=== PATIENT | female | born 1940 | race Caucasian/White ===

== ENCOUNTER 2025-06-03 15:53 | Inpatient (IN) | payer MEDICARE, OTHER, SELFPAY ==
[2025-06-03] VITALS (10 sets, daily range): BP systolic 112–186; BP diastolic 80–100; BMI 22.1; BMI 21.1
[2025-06-03 11:30] LABS: Hematocrit 35.8 % (37.0-47.0); Hemoglobin 11.7 g/dL (12.0-16.0); Mean Corp Hgb Conc. 32.7 g/dL (33.0-37.0); Mean Corpuscular Volume 85.0 fL (81.0-99.0); Nucleated Red Blood Cells % 0 %; Platelet Count 317 10^3/uL (130-400); Red Cell Dist. Width 14.1 % (11.5-14.5)
[2025-06-03 11:45] LABS: ALT (SGPT) 11 U/L (0-35); AST (SGOT) 17 U/L (14-36); Albumin 3.9 g/dl (3.5-5.0); Alkaline Phosphatase 74 U/L (38-126); Blood Urea Nitrogen 17 mg/dl (7-17); Calcium 9.1 mg/dl (8.4-10.2); Carbon Dioxide 26 mmol/L (22-30); Chloride 107 mmol/L (98-107); Glucose 105 mg/dl (70-99); Potassium 4.6 mmol/L (3.5-5.1); Sodium 138 mmol/L (135-145); Total Protein 6.5 g/dl (6.3-8.2); eGFR > 60.00
--- NOTE | 2025-06-03 12:53 | ED.GENMED ---
History of Present Illness
General
Chief Complaint: Abdominal Symptoms
Source: patient, spouse and family
Exam Limitations: none
Time Seen by Provider: 06/03/25 12:07
Nursing documentation reviewed up to this point in time: agreed with
History of Present Illness
History of Present Illness:
84-year-old female presenting to the emergency department today with concerns of ongoing diarrhea it has been multiple times a day over the past 4 weeks. Has noted some weight loss. She was concerned of C. difficile she did have C. difficile
decades ago.
Past History
Past History
ED Past Medical History: None and Other (pessary)
ED Past Surgical History: Gynecological (D&C), Tonsilectomy and Other (Cataracts)
Social History
Tobacco: Non-smoker
Alcohol: Occasional
Personal:
Living: with family
Review of Systems
Review of Systems
Allergies reviewed?: Yes
All Other Systems: ROS reviewed and negative except as documented in HPI and ROS
Phy Exam
Physical Exam
Physical Exam:
GENERAL: Alert , in no apparent distress
EYE: pupils equal and reactive
NECK: Supple, no significant adenopathy.
ENT: o/p clr, mmm.
CARDIAC: Regular rate and rhythm .
LUNGS: Clear breath sounds bilaterally, no acute respiratory distress, no wheezes/rales/rhonchi
ABDOMEN: Vague diffuse abdominal pain
NEUROLOGICAL: Alert and oriented, no focal neuro deficits
SKIN: Warm and dry, skin intact.
MUSCULOSKELETAL: No edema, well perfused.
PSYCH: Normal and appropriate interaction.
Course
Orders/Labs/Results
Orders:
Orders
06/03/25 11:17
CMP [Comprehensive Metabolic Panel] Urgent
Complete Blood Count/With Diff Urgent
06/03/25 12:30
CT Abd/Pel (IV only)-[facility] only Urgent
Comment:
Reason For Exam: diffuse abd pain/diarrhea
STOOL [C difficile Antigen & Toxins] Urgent
CARLOS Source: Feces/Stool
Specimen Description:
Stool Culture Urgent
CARLOS Source: Feces/Stool
Specimen Description:
Ondansetron Injectable [Zofran] 4 mg IV NOW STA
06/03/25 12:31
0.9% Sodium Chloride 1000 ml [Nss] 1,000 ml IV BOLUS
Abnormal Lab Results
06/03/25
11:17
WBC 13.3 H 10^3/uL
(4.8-10.8)
Hgb 11.7 L g/dL
(12.0-16.0)
Hct 35.8 L %
(37.0-47.0)
MCHC 32.7 L g/dL
(33.0-37.0)
Absolute Neuts (auto) 11.0 H 10^3/uL
(1.4-6.5)
Absolute Monos (auto) 0.9 H 10^3/uL
(0.1-0.6)
Neutrophils % 82.1 H %
(42.2-75.2)
Lymphocytes % 9.7 L %
(20.5-51.1)
Glucose 105 H mg/dl
(70-99)
06/03/25 11:17
06/03/25 11:17
Vital Signs
Initial and Last Documented VS:
Initial Vital Signs
Temp Pulse Resp BP Pulse Ox
98.1 F 76 18 160/85 97
06/03/25 11:07 06/03/25 11:07 06/03/25 11:07 06/03/25 11:07 06/03/25 11:07
Last Documented Vital Signs
Temp Pulse Resp BP Pulse Ox
98.1 F 66 14 163/80 98
06/03/25 11:07 06/03/25 13:30 06/03/25 13:30 06/03/25 13:21 06/03/25 13:30
MDM/Problems Addressed
MDM/Problems Addressed:
84-year-old female presenting with concerns of ongoing diarrhea and abdominal pain over the past 4 weeks or so. Feels that she could be dehydrated. On arrival vital signs showing elevated blood pressure otherwise vital signs are normal. Labs
showing slight elevated white count but no emergent findings otherwise labs otherwise unremarkable no signs of significant metabolic dehydration. CT scan was obtained considering she has had some abdominal pain and some reproducible pain on exam.
Patient was found to have potential colitis versus neoplasia of the distal colon also had suspicious findings of the liver possible portal thrombus considering multiple findings plan to admit for further treatment and monitoring.
*Pulse Oximetry
SaO2: 97
Oxygen Mode of Delivery: Room air
Patient hypoxic: no (98)
*Critical Care Note
Total Time (30-74mins, 75-104mins- exclusive of procedures): Not Applicable
ED Attending Note
-
Portions of this chart may have been created with voice recognition software.� Occasional wrong word or��sound alike� substitutions may have occurred due to the inherent limitations of voice recognition software.
Discharge Plan
Departure
Patient Disposition: Admit
Date of Disposition: 06/03/25
Time of Disposition: 15:01
Admit to: Med/Surg
Admit to doctor: Osminy
Presentation/result/management discussed w/ accepting MD/DO: Hospitalist
Patient with high blood pressure during this ER visit?: No
Condition: Good
Covid-19: Not Applicable
Discharge Problem:
Colitis, Diarrhea, Abnormal CT of liver
Referrals:
Jevon Plunkett DO [Family Provider, Family Practice]
Interventions
Interventions:
*Risk Screen - Suicide Last Done: 06/03/25 11:07
*General Assessment Last Done: 06/03/25 13:12
*Neglect/Abuse Screening Last Done: 06/03/25 13:12
*ED- Fall Risk Assessment Last Done: 06/03/25 13:12
*ED COVID-19 Vaccine History Last Done: 06/03/25 13:12
WZ-Xwsepk-Meptjiyved Assessment Last Done: 06/03/25 13:22
Discharge Date and Time
Print Language: WELSH
[2025-06-03] MEDS: NSS 1000 IV (13:25)
--- NOTE | 2025-06-03 15:40 | HPS.HSE ---
Family Physician
-
Family Physician: Jevon Plunkett
Chief Complaint
-
Weight loss, diarrhea, abdominal pain
History of Present Illness
84-year-old female presents accompanied by her and son, complaining of 47 pound weight loss over the past year with associated chronic diarrhea and abdominal discomfort.
States the diarrhea has been present for several months but worsened 2 weeks ago.
Yesterday developed abdominal discomfort.
Only eats 2 meals a day due to chronic anorexia.
Has never had a colonoscopy. Denies history of malignancy. Denies history of VTE.
Denies serious chronic medical conditions.
Denies using prescription medications. Does use eyedrops for macular degeneration.
Medical History
Past Medical History
Past Medical History: Reports Other
Additional Past Medical History:
Macular degeneration
Past Surgical History: Reports None
Social History
Tobacco: Non-smoker
Alcohol: None
Drug: None
Personal:
Living: With Family
Family History
Family History: Not pertinent
Allergies / Home Medications
Allergies reflects when Allergies were last updated in [employer].
Home Medications with original date entered in [employer]
Allergy/Medication List:
Allergies
Allergy/AdvReac Type Severity Reaction Status Date / Time
latex Allergy rash- Verified 06/03/25 11:10
hivelike
plants outside Allergy prickly Uncoded 06/03/25 11:10
rash
tide Allergy Unknown Uncoded 06/03/25 11:10
If medication reconciliation has not been performed, why?: Other
If Other, explain: Patient does not remember name of eyedrops
Review of Systems
-
History Source: Patient
A 12 point ROS was completed and negative except as noted: Yes
Physical Exam
Vital Signs
Vital Signs
Temp Pulse Resp BP Pulse Ox
98.1 F 76 16 157/82 98
06/03/25 11:07 06/03/25 15:00 06/03/25 15:00 06/03/25 15:00 06/03/25 14:45
Physical Exam
General: Well Developed, Well Nourished, No Apparent Distress and Comfortable
HEENT: NormoCephalic, Anicteric and Moist mucous membranes
Respiratory: Clear
Cardiac: S1/S2 and Regular Rhythm
Breast: Deferred by me
GI: Soft, Non Distended and Tender (Diffuse tenderness without guarding or rebound)
Genito-urinary: Deferred by me
Musculoskeletal: No Clubbing, No Cyanosis, Edema, Left Lower Extremity and Edema, Right Lower Extremity
Skin: Warm and Dry
Neuro: Awake, Alert and Oriented
Hematologic/Lymphatic: No Lymphadenopathy
Psych: Calm
Laboratory Results
-
06/03/25 11:17
06/03/25 11:17
Laboratory Results
Total Bilirubin 0.5 mg/dl (0.2-1.3) 06/03/25 11:17
AST 17 U/L (14-36) 06/03/25 11:17
ALT 11 U/L (0-35) 06/03/25 11:17
Alkaline Phosphatase 74 U/L (38-126) 06/03/25 11:17
Impression/Plan
-
Chronic diarrhea -symptoms of significant weight loss, anorexia, abdominal discomfort with findings of colitis on CT scan concerning. Differential diagnosis of malignancy, less likely inflammatory or infectious. Less likely ischemic.
CT abdomen/pelvis with contrast demonstrates cholelithiasis without cholecystitis. Questionable thickening of the wall of the right colon suggestive of colitis. Sigmoid colitis noted. Possible branch portal vein thrombus versus peripheral
intrahepatic biliary ductal dilation.
Admit to MedSurg. Clear liquid diet. Consult GI.
Check stool studies if she has diarrhea.
MRI abdomen with and without contrast.
She has never had a colonoscopy. She has a fear of the prep.
Patient concerned about new lower extremity edema bilaterally. Check venous Doppler ultrasound, rule out DVT.
Chronic L1 vertebral compression fracture -noted on CT, likely due to fall and osteoporosis. Relatively asymptomatic.
Macular degeneration -family to bring in eyedrops from home.
Normocytic anemia -hemoglobin 11.7. Etiology and acuity unknown. Monitor for now.
DNR -confirmed with patient and family.
and son updated at bedside.
--- NOTE | 2025-06-03 18:44 | PTCARENOTE ---
Pt arrived from ED via stretcher. PCT's assisted pt into room. Will inform nightshift RN.
[2025-06-03] MEDS: LR 1000 IV (21:00)
[2025-06-03] MEDS: LOVENOX 30 MG SC (21:00)
--- NOTE | 2025-06-04 02:22 | DOWNTIME ---
There was a [email or web address] Downtime on 06/04/2025 from 0100 to 06/04/2025 at 0220. Downtime documentation of patient's care, including medication administrations, has been reconciled in the electronic record per guidelines. Refer to the
patient's paper chart under the miscellaneous tab to see printed paper medication records and downtime forms.
[2025-06-04 06:19] LABS: Hematocrit 30.9 % (37.0-47.0); Hemoglobin 10.1 g/dL (12.0-16.0); Mean Corp Hgb Conc. 32.7 g/dL (33.0-37.0); Mean Corpuscular Volume 83.7 fL (81.0-99.0); Nucleated Red Blood Cells % 0 %; Platelet Count 273 10^3/uL (130-400); Red Cell Dist. Width 14.2 % (11.5-14.5)
[2025-06-04 08:05] VITALS: BP 144/80
[2025-06-04] MEDS: LR 1000 IV (09:41)
--- NOTE | 2025-06-04 09:55 | W.PN.HOSP.TC ---
Today's Communication/Plan
-
Start nifedipine
GI consult
Abdominal MRI
Lower extremity ultrasound
Stool studies
Assessment / Plan
Assessment / Plan
Gen-AAOx3, NAD
HEENT-NC, AT, anicteric, clear oral mm
Neck-supple
CV-reg, no M, +S1/S2
Lungs-clear B/L
Abd-soft, NT, ND
Ext-no edema
Musculoskeletal-no cyanosis, clubbing
Skin-warm and dry
Neuro-grossly non-focal
Psych-calm, cooperative
Chronic diarrhea -symptoms of significant weight loss, anorexia, abdominal discomfort with findings of colitis on CT scan concerning. Differential diagnosis of malignancy, less likely inflammatory or infectious. Less likely ischemic.
CT abdomen/pelvis with contrast demonstrates cholelithiasis without cholecystitis. Questionable thickening of the wall of the right colon suggestive of colitis. Sigmoid colitis noted. Possible branch portal vein thrombus versus peripheral
intrahepatic biliary ductal dilation.
Continue clear liquid diet. Consult GI.
Still has loose stools, stool studies unfortunately not sent yet. Discussed with nursing.
MRI abdomen with and without contrast.
She has never had a colonoscopy. She has a fear of the prep.
Patient concerned about new lower extremity edema bilaterally. Check venous Doppler ultrasound, rule out DVT.
Chronic L1 vertebral compression fracture -noted on CT, likely due to fall and osteoporosis. Relatively asymptomatic.
Macular degeneration -family to bring in eyedrops from home.
Normocytic anemia - Etiology and acuity unknown. Monitor for now.
Elevated blood pressure -likely essential hypertension, untreated. Will start nifedipine.
DNR
Anticipated Discharge: 24 - 48 hours
Subjective/Interval History
-
Date of Service: June 04, 2025
Patient seen and examined. No complaints.
Objective Data
-
Labs:
Laboratory Results
06/04/25
05:29
WBC 8.3
Hgb 10.1 L
Hct 30.9 L
Plt Count 273
Vital Signs:
Vital Signs
Temp Pulse Resp BP Pulse Ox
98.0 F 78 16 144/80 95
06/04/25 08:05 06/04/25 08:05 06/04/25 08:05 06/04/25 08:05 06/04/25 08:05
I&O
06/03/25 06/04/25 06/05/25
06:59 06:59 06:59
Intake Total 660 / 660
Balance 660 / 660
Review of Systems
-
History Source: Patient
All other systems: Reviewed and negative
--- NOTE | 2025-06-04 10:00 | CON.GI ---
Addendum entered and electronically signed by Danika De La Garza DO 06/04/25 15:58:
Patient seen and examined independently of the STEPHANIE. I agree with her note with my additions below
Asia is an 84-year-old female with not much medical history who was brought in by her family with significant weakness, presyncopal symptoms and lower abdominal pain for about 2 hours. For about 6 months now she has had a decrease in appetite with
almost 50 pound weight loss and a change in bowel habits. Over a year ago her bowel movements were normal with no issues then over the past few months she has noticed small squiggly stools that would occur throughout the day without blood. She
would take 2 tablets of Imodium with improvement. On admission she had a CT scan showing some thickening and enhancement in the rectum and sigmoid with stranding and edema as well as enlarged lymph node. Also some questionable thickness of the
right colon but there was no oral contrast. On CT scan as well as follow-up MRI she had a questionable branch portal vein thrombus. Extremity Dopplers were negative for clot. She has a mild iron deficiency anemia. Denies any dysphagia, reflux,
nausea, vomiting. Denies any NSAID use.
No known family history of colon cancer. She quit smoking over 50 years ago. Rare alcohol.
# Weight loss, change in bowel habits, lower abdominal pain with abnormal CT scan
-- Will proceed to colonoscopy tomorrow morning
-- Stool studies are pending
-- Malignancy until proven otherwise
-- Patient would like to be discharged after her colonoscopy as her birthday is tomorrow. I told her no promises
-- Start H2 tomasz
-- Agree with DVT prophylaxis
-- This will be her first colonoscopy
-- Discussed with patient and family at bedside including her and son. They are all agreeable. Also discussed with primary team and nursing
Original Note:
Consultation
-
Date/Time Consultation Requested: 06/03/25 9484
Date/Time Consultation Performed: 06/04/25 1000
Requesting Provider: Erik Menard MD
Performing Provider: STEPHANIE Breaux, Danika De La Garza, DO
Reason for Consultation: wt loss, abdominal pain
Medical History
Chief Complaint / HPI
History of Present Illness:
Pt is a 84yo presents hx macular degeneration, with wt loss of 47 lbs, diarrhea and abdominal pain. In review with patient she began with wt loss now up to 47 lbs and eating less over last year. She then started with diarrhea around November but
stated Imodium 2 tabs daily with improvement. She still noted some change in bowel habit and had abdominal pain several days ago in lower abdomen that has now improved. On admission Ct completed with thickening and enhancement of wall of rectum
and sigmoid with stranding and edema. Also noted right perirectal soft tissue density suggesting enlarged lymph node with concern for colitis, vs underlying neoplasm. Also noted thickening of right colon, cholelithiasis and possible PVT vs
intrahepatic biliary dilatation and L1 vertebral deformity. She denies hx EGD or colonoscopy in past. She did reach out to PCP for evaluation but was referred to ER with concern for amount of wt loss. She was seen by [facility] reports stable US pelvis.
On admission labs with mild anemia and normocytic with hbg 11.7 then 10.1.
In review with patient She admits to eating 2 meals per day. She has been eating less over last year with some bloating. Diarrhea in bowel loose with about 8 stools per day with urination. She did have the recent lower abdominal pain but
now resolved. She denies dysphagia, GERD, nausea, vomiting, constipation or rectal bleeding. + recent fall with use of capasicin cream but no other new meds. Pt on fish oil but denies any anticoagulation or NSAID use.
Past Medical History
Past Medical History: Other (macular degeneration )
Social History
Tobacco: Former Smoker (quit 50 + years ago )
Alcohol: Occasional (rare use )
Drug: None
Personal:
Living: With Family
Employment: Retired
Family History
Family History: Other (father with hx c-diff infection, no family hx colon Ca or polyps)
Allergies / Home Medications
Allergy/AdvReac Type Severity Reaction Status Date / Time
latex Allergy rash- Verified 06/03/25 11:10
hivelike
plants outside Allergy prickly Uncoded 06/03/25 11:10
rash
tide Allergy Unknown Uncoded 06/03/25 11:10
�Medication �Instructions �Recorded
Fish Oil 1 cap PO DAILY 06/03/25
bromfenac 0.09 % eye drops 1 drp RIGHT EYE BID 06/03/25
capsaicin 1 applic topical DAILYPRN PRN 06/03/25
apply to B/L knees & lower back
cholecalciferol (vitamin D3) 25 25 mcg PO DAILY 06/03/25
mcg (1,000 unit) tablet
loperamide 2 mg capsule 4 mg PO DAILYPRN PRN diarrhea 06/03/25
prednisolone acetate 1 % eye 1 drp RIGHT EYE BID 06/03/25
drops,suspension
therapeutic multivitamin 1 tab PO DAILY 06/03/25
Review of Systems
-
History Source: Patient
Constitutional: Reports Weight Loss ( 47 lbs )
EENT: Reports No Symptoms
Respiratory: Reports No Symptoms
Cardiac: Reports No Symptoms
Abdomen/GI: Reports Abdominal Pain, Diarrhea and Other (bloating )
: Reports No Symptoms
Musculoskeletal: Reports No Symptoms
Skin: Reports No Symptoms
Neurological: Reports Weakness and Other (recent fall )
Endocrine: Reports No Symptoms
Hematologic/Lymphatic: Reports No Symptoms
Vital Signs
Temp Pulse Resp BP Pulse Ox
98.0 F 78 16 144/80 95
06/04/25 08:05 06/04/25 08:05 06/04/25 08:05 06/04/25 08:05 06/04/25 08:05
Physical Exam
Exam
General: Well Developed, Well Nourished and Other (thin appearing )
HEENT: Normocephalic and Anicteric
Respiratory: Clear
Cardiac: Regular Rhythm
GI: Soft, Non Tender and Distended (mild )
Rectal: Other (pt declined )
Musculoskeletal: No Clubbing and No Cyanosis
Skin: Warm and Dry
Neuro: Awake, Alert and AO x 3
Psych: Calm
Results
WBC 8.3 10^3/uL (4.8-10.8) 06/04/25 05:29
Hgb 10.1 g/dL (12.0-16.0) L 06/04/25 05:29
Hct 30.9 % (37.0-47.0) L 06/04/25 05:29
MCV 83.7 fL (81.0-99.0) 06/04/25 05:29
Plt Count 273 10^3/uL (130-400) 06/04/25 05:29
Absolute Neuts (auto) 5.5 10^3/uL (1.4-6.5) 06/04/25 05:29
Sodium 138 mmol/L (135-145) 06/03/25 11:17
Potassium 4.6 mmol/L (3.5-5.1) 06/03/25 11:17
Chloride 107 mmol/L (98-107) 06/03/25 11:17
Carbon Dioxide 26 mmol/L (22-30) 06/03/25 11:17
BUN 17 mg/dl (7-17) 06/03/25 11:17
Creatinine 0.6 mg/dL (0.6-1.0) 06/03/25 11:17
Calcium 9.1 mg/dl (8.4-10.2) 06/03/25 11:17
Total Bilirubin 0.5 mg/dl (0.2-1.3) 06/03/25 11:17
AST 17 U/L (14-36) 06/03/25 11:17
ALT 11 U/L (0-35) 06/03/25 11:17
Alkaline Phosphatase 74 U/L (38-126) 06/03/25 11:17
Diagnostic Image Results:
06/03/25 CT Abd/Pel (IV only)-[facility] only
IMPRESSION: Thickening and enhancement of the wall the rectum and sigmoid colon, with stranding/edema within the adjacent fat. There is also a right perirectal soft tissue density, suggesting an enlarged perirectal lymph node. Findings would be most
suggestive of colitis, although underlying neoplasia is also possible. When feasible, consider further evaluation with sigmoidoscopy/colonoscopy.
Questionable thickening of the wall the right colon, also suggestive of colitis, but underdistention limiting evaluation.
Cholelithiasis. No CT findings to suggest acute cholecystitis.
Branching focus of decreased density within the anterior-inferior aspect of the anterior segment of the right lobe of the liver. This is suspicious for branch portal vein thrombus, although could also be peripheral intrahepatic biliary ductal
dilation. As warranted, consideration for further evaluation with MRI of the abdomen without and with contrast, if the patient is able to hold her breath.
Moderate anterior compression deformity of the L1 vertebral body is new from lumbar spine radiographs of October 25, 2022, but morphologically appears to be an old fracture. Please correlate with acute symptoms.
Prior GI Procedures:
EGD: none
Colonoscopy: none
Assessment / Plan
-
Pt is a 84yo presents hx macular degeneration, with wt loss of 47 lbs, diarrhea and abdominal pain. In review with patient she began with wt loss now up to 47 lbs and eating less over last year. She then started with diarrhea around November but
stated Imodium 2 tabs daily with improvement. She still noted some change in bowel habit and had abdominal pain several days ago in lower abdomen that has now improved. On admission Ct completed with thickening and enhancement of wall of rectum
and sigmoid with stranding and edema. Also noted right perirectal soft tissue density suggesting enlarged lymph node with concern for colitis, vs underlying neoplasm. Also noted thickening of right colon, cholelithiasis and possible PVT vs
intrahepatic biliary dilatation and L1 vertebral deformity. She denies hx EGD or colonoscopy in past. She did reach out to PCP for evaluation but was referred to ER with concern for amount of wt loss. She was seen by [facility] reports stable US pelvis.
On admission labs with mild anemia and normocytic with hbg 11.7 then 10.1.
-wt loss 47 lbs over last year
-diarrhea since November
-recent lower abdominal pain
-normocytic anemia
-abnormal Ct with thickening and enhancement of wall of rectum and sigmoid with stranding and edema. Also noted right perirectal soft tissue density suggesting enlarged lymph node with concern for colitis, vs mass
-right colon colitis
-CT with possible PVT vs intrahepatic biliary dilatation
-HTN new on admission
other med problems:
-cholelithiasis
-L1 deformity on Ct with recent fall
PLAN:
etiology of wt loss and abnormal imaging with concern for underlying rectosigmoid mass vs colitis and possible PVT vs duct dilation with normal LFT's
plan for MRI abdomen and LE US
pt declined current rectal exam
discussed colonoscopy -- she will consider but wishes to proceed with MRI first
trend hbg
add iron studies
-
-
Thank you for consultation and allowing me to participate in the patient's care. Please call the ship construction teacher GI physician during the after hours with any questions or concerns.
--- NOTE | 2025-06-04 10:21 | PTCARENOTE ---
New order for Procardia provided, see MAR. This RN went to administer medication, pt refused. Pt stated, 'That last time I got blood pressure medication, I was lightheaded and dizzy'. This RN informed pt of medication purpose, pt continued to
refused and stated, 'This was not discussed with me and I do not want to take it'. made aware.
[2025-06-04 11:03] LABS: Iron 48 ug/dl (37-170)
[2025-06-04 11:13] LABS: Total Iron Binding Capacity 251 ug/dl (265-497)
[2025-06-04 11:38] LABS: Ferritin 18.2 ng/ml (11.1-264.0)
[2025-06-04 15:02] VITALS: BP 153/77
[2025-06-04 15:09] VITALS: BP 160/78; PULSE 66; O2SAT 95
[2025-06-04] MEDS: NULYTELY SOLUTION 4 LITERS PO (16:22)
[2025-06-04 16:36] VITALS: BMI 21.1
[2025-06-04 23:25] VITALS: BP 146/80
[2025-06-05 06:22] LABS: Hematocrit 34.0 % (37.0-47.0); Hemoglobin 11.0 g/dL (12.0-16.0); Mean Corp Hgb Conc. 32.4 g/dL (33.0-37.0); Mean Corpuscular Volume 84.6 fL (81.0-99.0); Platelet Count 281 10^3/uL (130-400); Red Cell Dist. Width 13.7 % (11.5-14.5)
[2025-06-05 06:28] LABS: INR 1.00; PT 13.5 Sec (11.4-14.6)
[2025-06-05 06:47] LABS: Blood Urea Nitrogen 7 mg/dl (7-17); Calcium 8.6 mg/dl (8.4-10.2); Carbon Dioxide 26 mmol/L (22-30); Chloride 107 mmol/L (98-107); Estimated Creatinine Clearance 56 ml/min; Glucose 87 mg/dl (70-99); Potassium 3.7 mmol/L (3.5-5.1); Sodium 138 mmol/L (135-145); eGFR > 60.00
[2025-06-05 07:46] VITALS: BP 138/88
--- NOTE | 2025-06-05 08:32 | W.PN.UPDATE ---
Addendum entered and electronically signed by Danika De La Garza DO 06/05/25 12:10:
patient still passing brown stools - has been prepping all day.
Discussed with her and family and she is willing to continue to prep and scope tomorrow.
ok for clears. Citroma ordered for 1529 if still passing brown
Original Note:
Update Note
Progress Note Update
patient not cleaned out. doing a citroma now and stop PO intake at 10am for afternoon procedure.
[2025-06-05] MEDS: CITROMA 300 ML PO ×2 (08:56→15:22)
--- NOTE | 2025-06-05 09:17 | W.PN.HOSP.TC ---
Today's Communication/Plan
-
Await colonoscopy
Stool studies
Assessment / Plan
Assessment / Plan
Gen-AAOx3, NAD
HEENT-NC, AT, anicteric, clear oral mm
Neck-supple
CV-reg, no M, +S1/S2
Lungs-clear B/L
Abd-soft, NT, ND
Ext-no edema
Musculoskeletal-no cyanosis, clubbing
Skin-warm and dry
Neuro-grossly non-focal
Psych-calm, cooperative
Chronic diarrhea -symptoms of significant weight loss, anorexia, abdominal discomfort with findings of colitis on CT scan concerning. Differential diagnosis of malignancy, less likely inflammatory or infectious. Less likely ischemic.
CT abdomen/pelvis with contrast demonstrates cholelithiasis without cholecystitis. Questionable thickening of the wall of the right colon suggestive of colitis. Sigmoid colitis noted. Possible branch portal vein thrombus versus peripheral
intrahepatic biliary ductal dilation.
Continue clear liquid diet. Consult GI.
Still has loose stools, stool studies unfortunately not sent yet. Discussed with nursing.
MRI abdomen with and without contrast shows peripheral focus of branching nodular enhancement within the anterior and inferior right lobe of the liver, with differential diagnosis of peripheral branch portal vein thrombus versus focal intrahepatic
bile duct dilation. I am not sure of the significance of this finding, nor am I inclined to start anticoagulation. Discussed with Dr. De La Garza and she agrees.
Plan for colonoscopy today as per GI service if she is cleaned out. Indication is colitis noted on imaging.
Chronic L1 vertebral compression fracture -noted on CT, likely due to fall and osteoporosis. Relatively asymptomatic.
Macular degeneration -family to bring in eyedrops from home.
Normocytic anemia - Etiology and acuity unknown. Monitor for now.
Elevated blood pressure -likely essential hypertension, untreated. Will start nifedipine. Discussed with patient importance of blood pressure control and importance of monitoring pressures at home. Apparently nursing reports that she is refusing
nifedipine.
DNR
Patient wants to leave today as it is her birthday. Stability for discharge depends on findings of colonoscopy.
Anticipated Discharge: Within 24 hours
Subjective/Interval History
-
Date of Service: June 05, 2025
Patient seen and examined, no complaints.
Objective Data
-
Labs:
Laboratory Results
06/05/25
05:45
WBC 9.9
Hgb 11.0 L
Hct 34.0 L
Plt Count 281
PT 13.5
INR 1.00
Sodium 138
Potassium 3.7
Chloride 107
Carbon Dioxide 26
BUN 7
Creatinine 0.5 L
Glucose 87
Calcium 8.6
Vital Signs:
Vital Signs
Temp Pulse Resp BP Pulse Ox
98.5 F 86 17 138/88 96
06/05/25 07:46 06/05/25 07:46 06/05/25 07:46 06/05/25 07:46 06/05/25 07:46
I&O
06/04/25 06/05/25 06/06/25
06:59 06:59 06:59
Intake Total 660 / 660 480 / 480
Balance 660 / 660 480 / 480
Review of Systems
-
History Source: Patient
All other systems: Reviewed and negative
[2025-06-05 11:33] VITALS: BP 122/77; BP 148/81; BP 157/83; PULSE 71; PULSE 72
[2025-06-05 15:47] VITALS: BP 133/75
[2025-06-05 23:18] VITALS: BP 141/64
[2025-06-06] VITALS (7 sets, daily range): BP systolic 13–165; BP diastolic 74–86; PULSE 72; O2SAT 97
--- NOTE | 2025-06-06 07:19 | PTCARENOTE ---
Patient had bowel movement, small amount of liquid maroon/dark red. JANNIE Mercado made aware.
--- NOTE | 2025-06-06 11:52 | W.PN.HOSP.TC ---
Today's Communication/Plan
-
Colorectal surgery consult
Oncology consult
Assessment / Plan
Assessment / Plan
Gen-AAOx3, NAD
HEENT-NC, AT, anicteric, clear oral mm
Neck-supple
CV-reg, no M, +S1/S2
Lungs-clear B/L
Abd-soft, NT, ND
Ext-no edema
Musculoskeletal-no cyanosis, clubbing
Skin-warm and dry
Neuro-grossly non-focal
Psych-calm, cooperative
Rectal mass -noted on exam today prior to colonoscopy. Unable to pass colonoscope past the mass. Biopsies performed by GI service. Approximately 3 cm from anal verge. Colorectal surgery consulted.
CEA 7.32. GI service consulted oncology.
Chronic diarrhea -likely due to underlying malignancy. Stool studies for infection negative so far.
CT abdomen/pelvis with contrast demonstrates cholelithiasis without cholecystitis. Questionable thickening of the wall of the right colon suggestive of colitis. Sigmoid colitis noted. Possible branch portal vein thrombus versus peripheral
intrahepatic biliary ductal dilation.
MRI abdomen with and without contrast shows peripheral focus of branching nodular enhancement within the anterior and inferior right lobe of the liver, with differential diagnosis of peripheral branch portal vein thrombus versus focal intrahepatic
bile duct dilation. I am not sure of the significance of this finding, nor am I inclined to start anticoagulation. Discussed with Dr. De La Garza and she agrees.
Chronic L1 vertebral compression fracture -noted on CT, likely due to fall and osteoporosis. Relatively asymptomatic.
Macular degeneration -family to bring in eyedrops from home.
Normocytic anemia - Etiology and acuity unknown. Monitor for now.
Elevated blood pressure -likely essential hypertension, untreated. Discussed with patient importance of blood pressure control and importance of monitoring pressures at home. Despite explanation patient refusing nifedipine.
DNR
Family updated at the bedside.
Anticipated Discharge: > 48 hours
Subjective/Interval History
-
Date of Service: June 06, 2025
Patient seen and examined. No complaints.
Objective Data
-
Vital Signs:
Vital Signs
Temp Pulse Resp BP Pulse Ox
97.4 F 64 13 152/83 97
06/06/25 10:20 06/06/25 10:20 06/06/25 10:20 06/06/25 10:20 06/06/25 10:20
I&O
06/05/25 06/06/25 06/07/25
06:59 06:59 06:59
Intake Total 480 / 480 720 / 720
Balance 480 / 480 720 / 720
Review of Systems
-
History Source: Patient
All other systems: Reviewed and negative
[2025-06-06 12:21] LABS: CEA 7.32 ng/ml
--- NOTE | 2025-06-06 15:01 | CON.CRS ---
Consultation
-
Date/Time Consultation Requested: 05/27/25
Date/Time Consultation Performed: 05/27/25
Performing Provider: Joey
Reason for Consultation: rectal mass
Medical History
-
Chief Complaint: weigt loss
History of Present Illness:
85-year-old female with a newly diagnosed rectal mass. She underwent a colonoscopy today, her first, by Dr. De La Garza. This revealed a rectal mass described as 3 cm above the anus which was endoscopically obstructing. It was biopsied. It was unable
to be traversed. In retrospect, the patient admits to 47 pounds of weight loss over the last year. She admits to lack of appetite. Admits also to chronic diarrhea with 8 or 9 BMs a day for a number of weeks if not months. Denies nausea or
vomiting. In general denies abdominal or rectal pain with the exception of a bout of abdominal discomfort this past weekend which subsided after few hours. On blood work, she is a bit anemic with a hemoglobin of 11. White count normal.
Electrolytes and LFTs are reasonable. Albumin is normal. CEA is mildly elevated at 7.32. The patient had a CT with contrast of the abdomen and pelvis on 06/03/2025. This was reviewed. This reveals no obvious liver metastases. Rectosigmoid area
is thickened. There is a enlarged nodule concerning for perirectal lymph node in the pelvis. There is a question of some mild right colon thickening as well. Gallstones were noted. There was also a question of venous thrombosis of a branch of
the intrahepatic portal vein. This was followed up with a MRI of the abdomen/liver on 06/04/2025. This still showed an area of concern for intrahepatic portal vein branch thrombus. Currently patient is not anticoagulated. I was asked to see the
patient regarding concern for rectal cancer.
Past Medical History
Past Medical History: Other (Macular degeneration; [place] [place])
Past Surgical History: Other (no abdominal surgeries)
Social History
Tobacco: Former Smoker (quit 50 years ago)
Alcohol: Occasional
Personal:
Living: With Family
Family History
Family History: Other (negative for polyps or colon cancer)
Allergies / Home Medications
Allergy/AdvReac Type Severity Reaction Status Date / Time
latex Allergy rash- Verified 06/03/25 11:10
hivelike
plants outside Allergy prickly Uncoded 06/03/25 11:10
rash
tide Allergy Unknown Uncoded 06/03/25 11:10
�Medication �Instructions �Recorded �Confirmed �Type
Fish Oil 1 cap PO DAILY 06/03/25 06/03/25 History
bromfenac 0.09 % eye drops 1 drp RIGHT EYE BID 06/03/25 06/03/25 History
capsaicin 1 applic topical DAILYPRN PRN 06/03/25 06/03/25 History
apply to B/L knees & lower back
cholecalciferol (vitamin D3) 25 25 mcg PO DAILY 06/03/25 06/03/25 History
mcg (1,000 unit) tablet
loperamide 2 mg capsule 4 mg PO DAILYPRN PRN diarrhea 06/03/25 06/03/25 History
prednisolone acetate 1 % eye 1 drp RIGHT EYE BID 06/03/25 06/03/25 History
drops,suspension
therapeutic multivitamin 1 tab PO DAILY 06/03/25 06/03/25 History
Review of Systems
-
A 10 point review of systems was completed, and was negative except as per HPI.
Physical Exam
Vital Signs
Temp 97.4 F 06/06/25 10:20
Pulse 64 06/06/25 10:20
Resp Rate 13 06/06/25 10:20
Blood pressure 152/83 06/06/25 10:20
SaO2 97 06/06/25 10:20
06/05/25 06/06/25 06/07/25
06:59 06:59 06:59
Actual Weight 51.284 kg
Body Mass Index (BMI) 20.0
Lab Results / Allergies
07/23/25 05:45
06/05/25 05:45
WBC 9.9 10^3/uL (4.8-10.8) 06/05/25 05:45
Hgb 11.0 g/dL (12.0-16.0) L 06/05/25 05:45
Hct 34.0 % (37.0-47.0) L 06/05/25 05:45
Plt Count 281 10^3/uL (130-400) 06/05/25 05:45
Abs Immat Gran (auto) 0.0 10^3/uL (0-0.05) 06/04/25 05:29
Neutrophils % 65.5 % (42.2-75.2) 06/04/25 05:29
Allergy/AdvReac Type Severity Reaction Status Date / Time
latex Allergy rash- Verified 06/03/25 11:10
hivelike
plants outside Allergy prickly Uncoded 06/03/25 11:10
rash
tide Allergy Unknown Uncoded 06/03/25 11:10
Physical Exam
General: Well Developed
HEENT: Normocephalic
Respiratory: Clear
Cardiac: S1/S2
GI: Soft, Non Tender and Non Distended
Neuro: AO x 3
Psych: Calm
Data Reviewed
-
CT Scan: Image Personally Visualized and interpreted and Discussed with Patient
MRI: Image Personally Visualized and interpreted and Discussed with Patient
Labs: Labs Reviewed by me and Discussed with Patient
Assessment / Plan
-
85-year-old female with likely stage III rectal cancer, 3 cm above the anorectal ring, 5 to 6 cm above the anal verge. It is endoscopically but not clinically obstructing. Is probably the cause of her symptoms. I discussed the situation with the
patient in detail. I described my concern for impending obstruction and offered her the option of diverting sigmoid colostomy upstream to the mass. She declined this. She understands that the tumor may ultimately cause obstruction and lead to
perforation or the need for emergency surgery. I believe she will ultimately be a candidate for WARREN (total neoadjuvant therapy) with accommodation of radiation and chemotherapy for period of months followed by reassessment and potentially eventual
surgery. Without a diverting colostomy she may obstruct during the treatment leading to a challenging circumstance. She understands this. On the other hand, with treatments the area may shrink. In regards to her rectal cancer workup, will
preemptively order CT of the chest with contrast and rectal cancer protocol MRI to complete the staging. Await pathology results for pathologic confirmation as well. She can be on a low residue diet. I discouraged her from taking Imodium as this
could potentiate obstruction. All questions answered.
[2025-06-06] MEDS: LOVENOX 30 MG SC (17:27)
--- NOTE | 2025-06-06 17:37 | W.PN.UPDATE ---
Update Note
Progress Note Update
GI will sign off since she will be managed by colorectal and oncology. Will await biopsy results. Please call if we can be of any help
--- NOTE | 2025-06-07 07:29 | CON.ONC ---
Consultation
-
Date Consultation Performed: 06/07/25
Performing Provider: Zee Gill
Impression
Impression
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
Normocytic anemia
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
Plan
Plan
Pending biopsy results
Patient to follow up with [place] outpatient. Will likely need chemoradiation + chemotherapy (duration 6 months) followed by restaging for surgery vs. watch and wait with surveillance
Given likely finding of small thrombus in the branch portal vein would recommend starting patient on a low dose anticoagulant. Would not recommend full dose while patient is having active bleeding from rectal mass. Would recommend Eliquis 2.5 BID.
Will defer to hospitalist for final decision upon discharge.
Patient History
History of Present Illness
Patient is an 85 year old female PMH of macular degeneration, presenting with 47 pound weight loss over the past year with associated chronic diarrhea and abdominal discomfort. Patient states the diarrhea has been present for several months but
worsened 2 weeks ago. Now with new abdominal discomfort. Patient admits to poor PO intake due to chronic anorexia. Patient has never had a colonoscopy. Denies history of malignancy. Denies family history of cancer.
In the ED, CT AP revealed thickening and enhancement of the wall the rectum and sigmoid colon, with stranding/edema within the adjacent fat and a right perirectal soft tissue density, suggesting an enlarged perirectal lymph node. MRI of the abdomen
revealed a peripheral focus of branching nodular enhancement within the anterior and inferior right lobe of the liver. Labs on admission were notable for WBC 13.3 ANC 11 Hgb 11.7. CEA was 7.32.
Patient had colonoscopy which revealed a fungating, infiltrative and ulcerated partially obstructing large mass was found at 3 cm proximal to the anus. The mass was circumferential. Biopsies were taken.
Patient had a Pelvic MRI today which revealed:
1. Primary Tumor Location: MID RECTUM
2. MRI Stage: T3c N 2a (Metastatic Left Mesorectal Lymph Nodes and Right Mesorectal Tumor Deposit)
3. Sphincter involvement: No
4. MRF Status: Involved (tumor margin less than 1 mm from the MRF)
5. EMVI: No
Patient seen at the bedside with and son present. Patient states that she had been having small, frequent bowel movements for a while and has never noticed blood in her stool until admission in the hospital. Patient denies any abdominal
pain. Discussed with patient in detail the standard of care treatment options for rectal cancer, of course pending the pathology results.
Past-Medical/Surgical History
Medical
Macular degeneration
Surgical
Reports none
Patient Medication
�Medication �Instructions �Recorded �Confirmed �Last Taken �Type
Fish Oil 1 cap PO DAILY 06/03/25 06/03/25 06/02/25 History
bromfenac 0.09 % eye drops 1 drp RIGHT EYE BID 06/03/25 06/03/25 06/03/25 History
capsaicin 1 applic topical DAILYPRN PRN 06/03/25 06/03/25 1 Week Ago History
apply to B/L knees & lower back ~05/27/25
cholecalciferol (vitamin D3) 25 25 mcg PO DAILY 06/03/25 06/03/25 06/02/25 History
mcg (1,000 unit) tablet
loperamide 2 mg capsule 4 mg PO DAILYPRN PRN diarrhea 06/03/25 06/03/25 Unknown History
prednisolone acetate 1 % eye 1 drp RIGHT EYE BID 06/03/25 06/03/25 06/03/25 History
drops,suspension
therapeutic multivitamin 1 tab PO DAILY 06/03/25 06/03/25 06/02/25 History
Active Medications
Generic Name Dose Route Start Last Admin
Trade Name Freq PRN Reason Stop Dose Admin
Acetaminophen 650 mg 06/03/25 18:44
Acetaminophen 325 Mg Tablet PO 07/01/25 18:43
Q6HPRN PRN
mild pain/ fever>100.5F
Enoxaparin Sodium 30 mg 06/03/25 18:44 06/06/25 17:27
Enoxaparin Sodium 30 Mg/0.3 Ml Syringe SC 07/01/25 18:43 30 mg
QPM AYLEEN Administration
Nifedipine 30 mg 06/05/25 08:00 06/07/25 07:11
Nifedipine 30 Mg Extended Release Tablet PO 07/03/25 07:59 Not Given
DAILY AYLEEN
Sodium Chloride 0 flush 06/03/25 19:00
Sodium Chloride 0.9% (Flush) Syringe IV 07/01/25 18:59
PER PROTOCOL AYLEEN
Review of Systems
-
History Source: Patient
Constitutional: Reports No Appetite
Respiratory: Reports No Symptoms
Cardiac: Reports No Symptoms
GI: Reports Diarrhea and Bloody Stools
: Reports No Symptoms
Musculoskeletal: Reports No Symptoms
Psych: Reports No Symptoms
Physical Exam
-
General: No Apparent Distress
GI: Soft and Other (nontender)
Labs
Lab Results
WBC 9.9 10^3/uL (4.8-10.8) 06/05/25 05:45
RBC 4.02 10^6/uL (4.20-5.40) L 06/05/25 05:45
Hgb 11.0 g/dL (12.0-16.0) L 06/05/25 05:45
Hct 34.0 % (37.0-47.0) L 06/05/25 05:45
MCV 84.6 fL (81.0-99.0) 06/05/25 05:45
MCH 27.4 pg (27.0-31.0) 06/05/25 05:45
MCHC 32.4 g/dL (33.0-37.0) L 06/05/25 05:45
RDW 13.7 % (11.5-14.5) 06/05/25 05:45
Plt Count 281 10^3/uL (130-400) 06/05/25 05:45
MPV 10.1 fL (7.4-10.4) 06/05/25 05:45
Abs Immat Gran (auto) 0.0 10^3/uL (0-0.05) 06/04/25 05:29
Absolute Neuts (auto) 5.5 10^3/uL (1.4-6.5) 06/04/25 05:29
Absolute Lymphs (auto) 1.6 10^3/uL (1.2-3.4) 06/04/25 05:29
Absolute Monos (auto) 1.0 10^3/uL (0.1-0.6) H 06/04/25 05:29
Absolute Eos (auto) 0.3 10^3/uL (0-0.7) 06/04/25 05:29
Absolute Basos (auto) 0.1 10^3/uL (0-0.2) 06/04/25 05:29
Immature Gran % 0.2 % (0-0.5) 06/04/25 05:29
Neutrophils % 65.5 % (42.2-75.2) 06/04/25 05:29
Lymphocytes % 19.1 % (20.5-51.1) L 06/04/25 05:29
Monocytes % 11.5 % (1.7-9.3) H 06/04/25 05:29
Eosinophils % 3.1 % (0-6) 06/04/25 05:29
Basophils % 0.6 % (0-2) 06/04/25 05:29
Creatinine 0.5 mg/dL (0.6-1.0) L 06/05/25 05:45
Vital Signs
Vital Signs
Temp Pulse Resp BP Pulse Ox
98.5 F 70 16 144/75 97
06/06/25 23:10 06/06/25 23:10 06/06/25 23:10 06/06/25 23:10 06/06/25 23:10
[2025-06-07 07:55] VITALS: BP 152/80
[2025-06-07 08:00] VITALS: BMI 19.9
--- NOTE | 2025-06-07 08:20 | W.PN.CRS1 ---
Today's Communication / Plan
-
MRI pelvis.
Assessment/Plan
-
85-year-old female with likely stage III rectal cancer, 3 cm above the anorectal ring, 5 to 6 cm above the anal verge. It is endoscopically but not clinically obstructing.
1. patient not interested in diverting colostomy to prevent LBO. She understands she may obstruct at some point including the ramifications.
2. CT chest yesterday reviewed. No obvious metastases in lungs. Incidental thyroid nodule. So far scans show no distant metastases and a likely pelvic enlarged LN. Stage III rectal cancer likely. Pelvic MRI pending (will complete workup).
3. await path.
4. await med onc input.
5. patient should follow up with me in the office next week. I anticipate lining her up for flex sig and port placement thereafter.
Subjective Data
Subjective Data
Date of Service: June 07, 2025
No complaints.
Objective Data
-
Vital Signs
Temp Pulse Resp BP Pulse Ox
97.3 F 70 16 152/80 95
06/07/25 07:55 06/07/25 07:55 06/07/25 07:55 06/07/25 07:55 06/07/25 07:55
Intake & Output
06/06/25 06/07/25 06/08/25
06:59 06:59 06:59
Intake Total 720 / 720 400 / 400
Balance 720 / 720 400 / 400
Intake:
Oral fluids 720 / 720 400 / 400
Other:
Number of approximated MODERATE 1
amounts of urine
Number of approximated LARGE 3
amounts of urine
Number of unmeasured liquid
stools
Rectum 3
Lab Results
06/05/25 05:45
06/05/25 05:45
Physical Exam
-
General: No Acute Distress
Chest: Clear
Cardiovascular: Regular Rate & Rhythm
Abdomen: Soft, Non Distended and Non Tender
Data Reviewed
-
CT Scan: Image Reviewed and Report Reviewed
--- NOTE | 2025-06-07 10:38 | W.PN.HOSP.TC ---
Today's Communication/Plan
-
Start HCTZ
Await pelvic MRI
Oncology consult
Discharge
Assessment / Plan
Assessment / Plan
Gen-AAOx3, NAD
HEENT-NC, AT, anicteric, clear oral mm
Neck-supple
CV-reg, no M, +S1/S2
Lungs-clear B/L
Abd-soft, NT, ND
Ext-no edema
Musculoskeletal-no cyanosis, clubbing
Skin-warm and dry
Neuro-grossly non-focal
Psych-calm, cooperative
Rectal mass -noted on exam prior to colonoscopy. Unable to pass colonoscope past the mass. Biopsies performed by GI service. Approximately 3 cm from anal verge. Appreciate colorectal surgery input. Recommend outpatient follow-up next week in
the office. Patient offered diverting colostomy to prevent obstruction but she declined.
CEA 7.32. GI service consulted oncology.
CT chest negative for metastatic disease. Incidental left thyroid lobe nodule measuring 2.1 cm. Outpatient thyroid ultrasound through PCP. Discussed with family.
Pelvic MRI completed, report pending.
Chronic diarrhea -likely due to underlying malignancy. Stool studies for infection negative.
CT abdomen/pelvis with contrast demonstrates cholelithiasis without cholecystitis. Questionable thickening of the wall of the right colon suggestive of colitis. Sigmoid colitis noted. Possible branch portal vein thrombus versus peripheral
intrahepatic biliary ductal dilation.
MRI abdomen with and without contrast shows peripheral focus of branching nodular enhancement within the anterior and inferior right lobe of the liver, with differential diagnosis of peripheral branch portal vein thrombus versus focal intrahepatic
bile duct dilation. I am not sure of the significance of this finding, nor am I inclined to start anticoagulation. Discussed with Dr. De La Garza and she agrees.
Chronic L1 vertebral compression fracture -noted on CT, likely due to fall and osteoporosis. Relatively asymptomatic.
Macular degeneration -family to bring in eyedrops from home.
Normocytic anemia - Etiology and acuity unknown. Monitor for now.
Elevated blood pressure -likely essential hypertension, untreated. She agrees to start HCTZ, order placed. She believes that she took nifedipine in the past and it caused vertigo. Recommend she start checking her blood pressures at home,
follow-up with PCP next week.
DNR
Dispo -anticipate discharge home this afternoon after oncology input and MRI pelvis report. Follow-up with PCP and colorectal surgery, oncology.
Family updated at the bedside.
32 minutes spent in discharge process.
Anticipated Discharge: Today
Subjective/Interval History
-
Date of Service: June 07, 2025
Patient seen and examined. No complaints. Family at the bedside.
Objective Data
-
Vital Signs:
Vital Signs
Temp Pulse Resp BP Pulse Ox
97.3 F 70 16 152/80 95
06/07/25 07:55 06/07/25 07:55 06/07/25 07:55 06/07/25 07:55 06/07/25 07:55
I&O
06/06/25 06/07/25 06/08/25
06:59 06:59 06:59
Intake Total 720 / 720 400 / 400
Balance 720 / 720 400 / 400
Review of Systems
-
History Source: Patient
All other systems: Reviewed and negative
--- NOTE | 2025-06-07 10:50 | W.DS.TRANS ---
DC Summary - [employer]
-
Discharge Instructions:
Discharge Diagnosis/Procedures Rectal mass
Diet Regular
Activity As tolerated
Driving Restrictions As prior to admission
Bathing Restrictions None
Instructions:
Stand-Alone Forms:
Changes to Home Medications: No
Discharge Medications:
DC Medications w/original date entered in [facility]
Fish Oil 1 cap PO DAILY 06/03/25
bromfenac 0.09 % eye drops 1 drp RIGHT EYE BID 06/03/25
capsaicin 1 applic topical DAILYPRN PRN apply to B/L knees & lower back 06/03/25
cholecalciferol (vitamin D3) 25 mcg (1,000 unit) tablet 25 mcg PO DAILY 06/03/25
prednisolone acetate 1 % eye drops,suspension 1 drp RIGHT EYE BID 06/03/25
therapeutic multivitamin 1 tab PO DAILY 06/03/25
hydrochlorothiazide 25 mg tablet 25 mg PO DAILY #30 tabs 06/07/25
Home Medication Changes
Pending Results: No
[2025-06-07] MEDS: ORETIC 25 MG PO (10:56)
[2025-06-07 11:56] VITALS: BP 129/71
--- NOTE | 2025-06-07 14:38 | CM ---
Pt cleared for discharge to home today. Her will transport.
Pt offered VN and she chose [facility]. Justine Paredes notified of same and has accepted the referral.
Plan: Discharge to home with [facility]
--- NOTE | 2025-06-07 15:00 | VNURNOTE ---
Home Health Liaison met with patient to discuss [facility] nurse/therapy, visits, schedule and homebound status. She was being wheeled out for DC. Patient is agreeable and understands that visits at home will be 2-3 x per week to assess and teach
medical management.
Patient is aware that [facility] will contact them for start of care in 1-2 days after discharge from .
[facility] referral completed in [facility].
== END 2025-06-07 14:54 | disposition home or self-care (01) | DRG 375 ==
LOC: 3 WEST ACU 15:53
PROVIDERS: Nurse Practitioner Adult Health; Student in an Organized Health Care Education/Training Program; ADMITTING PHYSICIAN Hospitalist; CONSULT PHYSICIAN Surgery; EMERGENCY PHYSICIAN Emergency Medicine; FAMILY PHYSICIAN Family Medicine; OTHER PHYSICIAN Internal Medicine; OTHER PHYSICIAN Internal Medicine Hematology & Oncology
PROC: 0DBQ8ZX Excision of Anus, Via Natural or Artificial Opening Endoscopic, Diagnostic (ICD-10-PCS; 2025-06-06)
DX: C20 Malignant neoplasm of rectum (principal); M48.56XA Collapsed vertebra, not elsewhere classified, lumbar region, initial encounter for fracture; D50.9 Iron deficiency anemia, unspecified; K52.9 Noninfective gastroenteritis and colitis, unspecified; I10 Essential (primary) hypertension; E04.1 Nontoxic single thyroid nodule; Z87.891 Personal history of nicotine dependence; Z91.040 Latex allergy status; Z66 Do not resuscitate; E86.9 Volume depletion, unspecified; K64.9 Unspecified hemorrhoids; K80.20 Calculus of gallbladder without cholecystitis without obstruction; M81.0 Age-related osteoporosis without current pathological fracture
CPT/HCPCS: 71260; 72197; 74177; 74183; 80048; 80053; 82378; 82728; 83540; 83550; 85025; 85027; 85610; 87045; 87046; 87324; 87328; 87329; 87427; 87449; 88305; 88342; 89055; 93970; 96360; 97116; 97162; 97167; 97530; 99285; A9575; Q9967

== ENCOUNTER 2025-06-28 06:22 | Day surgery (SDC) | payer MEDICARE, OTHER, SELFPAY ==
[2025-06-28 14:20] VITALS: BP 143/97
[2025-06-28 14:30] VITALS: BMI 19.7
[2025-06-28 18:15] VITALS: BP 131/63; BP 143/97
[2025-06-28 18:30] VITALS: BP 143/71
[2025-06-28 18:45] VITALS: BP 140/77
[2025-06-28 19:00] VITALS: BP 142/78
[2025-06-28 19:20] VITALS: BP 142/78
== END 2025-06-28 19:44 | disposition home or self-care (01) ==
LOC: SDS 06:22
PROVIDERS: ATTENDING PHYSICIAN Surgery
DX: C20 Malignant neoplasm of rectum (principal); Z45.2 Encounter for adjustment and management of vascular access device
CPT/HCPCS: 36561; 45330; 71045; 76000; 93005; C1788

== ENCOUNTER → 2025-07-05 13:15 | Outpatient (REF) | payer MEDICARE, OTHER, SELFPAY ==
[2025-07-05 14:47] LABS: Hematocrit 33.5 % (37.0-47.0); Hemoglobin 10.7 g/dL (12.0-16.0); Mean Corp Hgb Conc. 31.9 g/dL (33.0-37.0); Mean Corpuscular Volume 84.0 fL (81.0-99.0); Nucleated Red Blood Cells % 0 %; Platelet Count 293 10^3/uL (130-400); Red Cell Dist. Width 14.2 % (11.5-14.5)
[2025-07-05 15:14] LABS: ALT (SGPT) 13 U/L (0-35); AST (SGOT) 20 U/L (14-36); Albumin 3.9 g/dl (3.5-5.0); Alkaline Phosphatase 70 U/L (38-126); Blood Urea Nitrogen 19 mg/dl (7-17); Calcium 9.4 mg/dl (8.4-10.2); Carbon Dioxide 25 mmol/L (22-30); Chloride 106 mmol/L (98-107); Glucose 88 mg/dl (70-99); Potassium 4.4 mmol/L (3.5-5.1); Sodium 139 mmol/L (135-145); Total Protein 6.6 g/dl (6.3-8.2); eGFR > 60.00
== END ==
LOC: REG 13:15
PROVIDERS: ATTENDING PHYSICIAN Internal Medicine Hematology & Oncology; FAMILY PHYSICIAN Family Medicine
DX: C20 Malignant neoplasm of rectum (principal)
CPT/HCPCS: 36415; 80053; 85025

== ENCOUNTER 2025-07-13 13:48 | Inpatient (IN) | payer MEDICARE, OTHER, SELFPAY ==
[2025-07-13] VITALS (9 sets, daily range): BP systolic 131–166; BP diastolic 72–95; BMI 20.6
[2025-07-13 11:20] LABS: Hematocrit 30.5 % (37.0-47.0); Hemoglobin 10.1 g/dL (12.0-16.0); Mean Corp Hgb Conc. 33.1 g/dL (33.0-37.0); Mean Corpuscular Volume 82.0 fL (81.0-99.0); Nucleated Red Blood Cells % 0 %; Platelet Count 272 10^3/uL (130-400); Red Cell Dist. Width 14.6 % (11.5-14.5)
[2025-07-13] MEDS: TYLENOL 650 MG PO (11:21)
--- NOTE | 2025-07-13 11:22 | ED.GENMED ---
History of Present Illness
General
Chief Complaint: Weakness
Source: patient and family
Exam Limitations: none
Time Seen by Provider: 07/13/25 10:48
Nursing documentation reviewed up to this point in time: agreed with
History of Present Illness
History of Present Illness:
Patient is an 85-year-old female currently undergoing chemotherapy/radiation for colon cancer who presents to the emergency department with right pain after syncopal event earlier today. Patient states that she was standing in the kitchen today
making breakfast when she suddenly felt her fingers and toes go numb. She states that 'the next thing she knew I was on the ground'. Patients states that he heard a 'thud' and found patient lying on the ground in the kitchen, conscious.
Patient believes she fell backward and did strike her head. She denies any preceding chest pain, shortness of breath, headache, nausea, dizziness.
Patient at this time complains of significant pain in her right hip/groin and has been unable to weight-bear. She denies any headache, vision changes, neck pain, back pain, weakness or numbness in extremities. She denies any chest pain, shortness
of breath, or abdominal pain.
Patient is not on any anticoagulation.
Past History
Past History
ED Past Medical History: None and Other (pessary)
ED Past Surgical History: Gynecological (D&C), Tonsilectomy and Other (Cataracts)
Social History
Tobacco: Non-smoker
Alcohol: Occasional
Personal:
Living: with family
Review of Systems
Review of Systems
Allergies reviewed?: Yes
All Other Systems: ROS reviewed and negative except as documented in HPI and ROS
Phy Exam
Physical Exam
Physical Exam:
Vitals: Patient's vital signs are stable. Afebrile
General: Patient is chronically ill appearing, frail
Skin: Warm and dry, no rashes or lesions
Head: Normocephalic, atraumatic
Eyes: Sclera nonicteric.
Throat: Protecting airway
Neck: Normal ROM, no cervical spine tenderness, no meningismus
Cardiac: Regular rate and rhythm, no murmurs. 2+ palpable radial pulses bilaterally. Port in right upper chest wall.
Pulm: Normal respiratory effort, no wheezes, rales, rhonchi heard on exam
Abdomen: Abdomen soft and nontender.
Extremities: No obvious deformity of RLE. Tenderness to right inguinal region. No tenderness of right greater trochanter. Mild pain with both internal/external rotation of right hip. No tenderness of right knee w/ full ROM. RLE neurovascularly
intact with 2+ palpable DP pulse and normal capillary refill.
Neuro: AAOx3. No focal neurologic deficits.
Psychiatric: Normal affect.
Course
Orders/Labs/Results
Orders:
Orders
07/13/25 Lunch
Regular
At Your Request: Limited Participation
Oral Supplement (If unsure of flavor order apple or vanilla): Ensure Clear Day
Supplement Frequency: Daily
07/13/25 10:50
Electrocardiogram (*1) Urgent
Reason for Study: Syncope
EKG- Treatment ONCE
07/13/25 10:56
Type+Screen Urgent
Complete Blood Count/With Diff Urgent
Comprehensive Metabolic Panel Urgent
PT/INR [Prothrombin Time] Urgent
07/13/25 11:12
CT Head W/o Iv Contrast Urgent
Comment:
Reason For Exam: unwitnessed fall
Cervical Spine wo Contrast CT [CT Cervical Spine W/o Iv Contr] Urgent
Comment:
Reason For Exam: unwitnessed fall
Hip, Right 2-3 Views [CR Hip - RT w/wo Pel 2-3 Vw*] Urgent
Comment:
Reason For Exam: fall, hip pain
Include a pelvis x-ray?: Yes
07/13/25 11:13
0.9% Sodium Chloride 500 ml [Nss] 500 ml IV BOLUS
07/13/25 11:20
Acetaminophen [Tylenol] 650 mg .ROUTE .STK-MED ONE
Acetaminophen [Tylenol] 650 mg PO NOW STA
07/13/25 12:20
Troponin I Urgent
07/13/25 13:13
CT Pelvis W/o Iv Contrast Urgent
Comment: possible extension to acetabulum
Reason For Exam: Right superior/inferior pubic rami fx
07/13/25 13:22
Admit/Transfer Patient As Directed
Co-Sign Provider:
Level of Care: Inpatient admission
Assign to:: Telemetry
Physician / Group: Hospitalist: Ben
Diagnosis: Syncope, pelvic fractures
Reason for Telemetry: Syncope
Date to Stop Telemetry: 07/15/25
Time to Stop Telemetry: 11:00
Reason for Hospitalization: Syncope, pelvic fractures
Expected length of stay greater than two midnights?: Yes
ELOS- Estimated Length of Stay in days: 2
I certify the patient meets the requirements for IP care: Yes
07/13/25 13:24
Code Status As Directed
Resuscitation Status: Full Code
07/13/25 13:26
Heparin Pf [Heparin Lock Flush] 500 unit .ROUTE .STK-MED ONE
07/13/25 15:18
Docusate W/Senna [Senokot-S] 1 tablet PO BIDPRN PRN
Polyethylene Glycol Powder [Miralax] 17 grams PO DAILYPRN PRN
Tramadol HCl [Ultram] 50 mg PO Q6HPRN PRN
07/13/25 15:18
Activity As Directed
Activity Level: Bedrest
Vital Signs As Directed
Frequency: Per unit guidelines
DX Deep Vein Thrombosis Video Routine
07/13/25 16:00
Heparin 5,000 units SC Q8
07/15/25 11:00
DC Protocol for Telemetry ONCE
Abnormal Lab Results
07/13/25
10:56
WBC 17.7 H 10^3/uL
(4.8-10.8)
RBC 3.72 L 10^6/uL
(4.20-5.40)
Hgb 10.1 L g/dL
(12.0-16.0)
Hct 30.5 L %
(37.0-47.0)
RDW 14.6 H %
(11.5-14.5)
Abs Immat Gran (auto) 0.1 H 10^3/uL
(0-0.05)
Absolute Neuts (auto) 16.2 H 10^3/uL
(1.4-6.5)
Absolute Lymphs (auto) 0.5 L 10^3/uL
(1.2-3.4)
Absolute Monos (auto) 0.8 H 10^3/uL
(0.1-0.6)
Neutrophils % 91.9 H %
(42.2-75.2)
Lymphocytes % 2.9 L %
(20.5-51.1)
Chloride 109 H mmol/L
(98-107)
Creatinine 0.5 L mg/dL
(0.6-1.0)
Glucose 104 H mg/dl
(70-99)
Total Protein 5.5 L g/dl
(6.3-8.2)
Albumin 3.3 L g/dl
(3.5-5.0)
07/13/25 10:56
07/13/25 10:56
Vital Signs
Initial and Last Documented VS:
Initial Vital Signs
Temp Pulse Resp BP Pulse Ox
97.5 F 78 18 138/78 98
07/13/25 09:39 07/13/25 09:39 07/13/25 09:39 07/13/25 09:39 07/13/25 09:39
Last Documented Vital Signs
Temp Pulse Resp BP Pulse Ox
98.0 F 65 16 146/76 96
07/14/25 07:46 07/14/25 07:46 07/14/25 07:46 07/14/25 07:46 07/14/25 07:46
MDM/Problems Addressed
Differential Diagnosis Includes:
Not limited to: hip fracture, pelvic fracture, hip dislocation, vasovagal syncope, dehydration, cardiac arrythmia, etc
MDM/Problems Addressed:
85 year-old female presenting with right hip pain following unwitnessed syncopal event this morning. Patient reports feeling numbness/tingling in fingers and toes followed by loss of consciousness. She�s been unable to weightbear since fall given
pain in right hip. No proceeding chest pain, shortness of breath. No headache, neck pain, back pain, or other injuries.
Vitals and physical exam as above.
Patient A&O x3 without any focal deficits. No evidence of head or neck trauma. Cardio/pulmonary assessment unremarkable. No obvious deformity of right lower extremity w/ tenderness in right inguinal region. RLE neurovascularly intact.
Differential broad as above. Will check labs, EKG given unwitnessed syncopal event. Will check x-ray right hip and treat pain.
Update: labs with leukocytosis � nonspecific. Possibly reactive secondary to chemotherapy/radiation and/or syncope. Chemistry unremarkable. EKG without acute ischemic changes and negative troponin.
X-ray of right hip reveals right superior/inferior pubic rami fractures with possible extension to acetabulum.
Unknown etiology of syncope today. Do not suspect cardiac syncope, possible vasovagal event. No finding suggestive of significant dehydration. No chest pain or shortness of breath to suggest PE.
Patient will require admission to the hospital given pelvic fracture and inability to ambulate. Case discussed with orthopedic who recommends [id number], most likely non-operative management however does recommend additional imaging with CT
pelvis to further evaluate extension into acetabulum which I did order.
Patient accepted to hospitalist service in stable condition pending pelvis CT. Orthopedics will consult.
Chronic conditions affecting care:
Colon CA
Acute Exacerbation and/or Progression of Chronic Illness:
N/A
*Radiology
Radiology exam reviewed: preliminary read by ED provider (Right hip xray reviewed by me - superior pubic rami fx extending into acetabulum) and radiology read reviewed
*Pulse Oximetry
SaO2: 97
Oxygen Mode of Delivery: Room air
Patient hypoxic: no
*EKG
Interpreted by ED Provider?: Yes
EKG Intrepretation Date: 07/13/25
Interpretation: abnormal
Comparison EKG: changes noted
Heart Rate: 66
Rate: normal
Rhythm: sinus
Interval: normal QT interval
QRS Pattern: poor R-wave progression and right bundle branch block
Ischemia: non-specific ST changes
*Employee Benefits Director Interpretation
Rate: normal
Interpretation: normal
Heart Rate: 72
Rhythm: sinus
*Critical Care Note
Total Time (30-74mins, 75-104mins- exclusive of procedures): Not Applicable
Patient Management
Discussion with other providers: Hospitalist and Mobile Unit Assistant (Case discussed w/ orthopedics)
ED Attending Note
-
Portions of this chart may have been created with voice recognition software.� Occasional wrong word or��sound alike� substitutions may have occurred due to the inherent limitations of voice recognition software.
Discharge Plan
Departure
Patient Disposition: Admit
Date of Disposition: 07/13/25
Time of Disposition: 13:06
Presentation/result/management discussed w/ accepting MD/DO: Hospitalist
Discharge Problem:
Syncope, Fracture of right superior pubic ramus, Fracture of right inferior pubic ramus
Interventions
Interventions:
*Risk Screen - Suicide Last Done: 07/13/25 09:39
*General Assessment Last Done: 07/13/25 10:39
*Neglect/Abuse Screening Last Done: 07/13/25 09:39
*ED- Fall Risk Assessment Last Done: 07/13/25 10:39
*ED COVID-19 Vaccine History Last Done: 07/13/25 10:39
*Nursing Disposition Last Done: 07/13/25 15:01
ED- Cardiac Assessment Last Done: 07/13/25 10:40
ED- Neurological Assessment Last Done: 07/13/25 10:40
ED- Pulmonary Assessment Last Done: 07/13/25 10:40
Discharge Date and Time
Discharge Date/Time: 07/13/25 15:02
[2025-07-13 11:25] LABS: INR 1.11; PT 14.6 Sec (11.4-14.6)
[2025-07-13] MEDS: NSS 500 IV (12:20)
[2025-07-13 12:53] LABS: ALT (SGPT) 17 U/L (0-35); AST (SGOT) 21 U/L (14-36); Albumin 3.3 g/dl (3.5-5.0); Alkaline Phosphatase 63 U/L (38-126); Blood Urea Nitrogen 12 mg/dl (7-17); Calcium 8.5 mg/dl (8.4-10.2); Carbon Dioxide 26 mmol/L (22-30); Chloride 109 mmol/L (98-107); Estimated Creatinine Clearance 56 ml/min; Glucose 104 mg/dl (70-99); Potassium 3.8 mmol/L (3.5-5.1); Sodium 138 mmol/L (135-145); Total Protein 5.5 g/dl (6.3-8.2); eGFR > 60.00
[2025-07-13 13:04] LABS: Troponin I < 0.012 ng/ml
--- NOTE | 2025-07-13 13:33 | HPS.HSE ---
Family Physician
-
Family Physician: NOT KNOW UNKNOWN - PT DOES
Chief Complaint
-
Syncope, pelvic fractures
History of Present Illness
Ms. Cardoso is an 85-year-old female with a medical history of recently diagnosed stage III rectal cancer (right chest Chemo-Port in place, receiving chemo and radiation), hypertension, and chronic anemia who presented after a syncopal episode at
home. She started radiation treatment 4 days ago for her rectal cancer. Her p.o. intake recently has been very poor. She felt fine this morning and was in the kitchen making breakfast when she felt her fingers and toes becoming numb. She does
not remember what happened after that. Her heard a thud from the other room and found her lying on the kitchen floor. She recovered to her baseline mental status quickly after regaining consciousness. She had no fecal or urinary
incontinence. Since falling she has been experiencing significant pain in her right hip and groin and has not been able to bear weight. Hip x-ray shows nondisplaced fractures of the right superior and inferior pubic rami with the superior ramus
fracture likely extending into the acetabulum. CT imaging her pelvis is pending. CT imaging of her head and neck show no acute abnormalities. She has been normotensive since arrival. Labs have been generally unremarkable except for a
leukocytosis of 17,000 and a hemoglobin of 10.1. She has been admitted for further evaluation and management.
Medical History
Past Medical History
Past Medical History: Reports Other
Additional Past Medical History:
stage III rectal cancer (right chest Chemo-Port in place, receiving chemo and radiation), hypertension, and chronic anemia
Past Surgical History: Reports None
Social History
Tobacco: Non-smoker
Alcohol: None
Drug: None
Personal:
Living: With Family
Family History
Family History: Not pertinent
Allergies / Home Medications
Allergies reflects when Allergies were last updated in [employer].
Home Medications with original date entered in [employer]
Allergy/Medication List:
Allergies
Allergy/AdvReac Type Severity Reaction Status Date / Time
latex Allergy rash- Verified 07/13/25 12:31
hivelike
mold Allergy congestion Verified 07/13/25 12:31
plants outside Allergy prickly Uncoded 07/13/25 12:31
rash
tide Allergy Unknown Uncoded 07/13/25 12:31
Home Medications
bromfenac 0.09 % eye drops 1 drp RIGHT EYE BID 06/03/25
cholecalciferol (vitamin D3) 25 mcg (1,000 unit) tablet 25 mcg PO DAILY 06/03/25
prednisolone acetate 1 % eye drops,suspension 1 drp RIGHT EYE BID 06/03/25
therapeutic multivitamin 1 tab PO DAILY 06/03/25
capecitabine 150 mg tablet 300 mg PO BID 07/13/25
capecitabine 500 mg tablet 1,000 mg PO BID 07/13/25
hydrochlorothiazide 25 mg tablet 25 mg PO . DIRECTED 07/13/25
ondansetron 8 mg disintegrating tablet 8 mg PO PRN PRN nausea 07/13/25
Review of Systems
-
History Source: Patient
A 12 point ROS was completed and negative except as noted: Yes
Constitutional: Reports Weight Loss
Abdomen/GI: Reports Anorexia
Musculoskeletal: Reports Joint Pain (Pelvic pain worse on the right side)
Physical Exam
Vital Signs
Vital Signs
Temp Pulse Resp BP Pulse Ox
97.5 F 74 16 131/72 97
07/13/25 09:39 07/13/25 13:00 07/13/25 13:00 07/13/25 13:00 07/13/25 11:24
Physical Exam
General: No Apparent Distress
Laboratory Results
-
07/13/25 10:56
07/13/25 10:56
Laboratory Results
PT 14.6 Sec (11.4-14.6) 07/13/25 10:56
INR 1.11 07/13/25 10:56
Total Bilirubin 0.6 mg/dl (0.2-1.3) 07/13/25 10:56
AST 21 U/L (14-36) 07/13/25 10:56
ALT 17 U/L (0-35) 07/13/25 10:56
Alkaline Phosphatase 63 U/L (38-126) 07/13/25 10:56
Troponin I < 0.012 ng/ml 07/13/25 12:20
Impression/Plan
-
General: No Apparent Distress, Conversant
HEENT: NormoCephalic, Moist mucous membranes, Atraumatic
Respiratory: Clear and Non Labored Respirations
Cardiac: S1/S2 and Regular Rhythm; No Rub or Gallop
GI: Soft, Non Tender, Non Distended and Normal Bowel Sounds
Musculoskeletal: No Edema, significant right hip and groin TTP, right lower extremity range of motion limited by pain
Skin: Warm and dry
: NO Dunn
Neuro: Awake, Alert, Nonfocal/grossly intact
Psych: Calm and Intact Judgment/Insight
Ms. Cardoso is an 85-year-old female with a medical history of recently diagnosed stage III rectal cancer (right chest Chemo-Port in place, receiving chemo and radiation), hypertension, and chronic anemia who presented after a syncopal episode at
home. She started radiation treatment 4 days ago for her rectal cancer. Her p.o. intake recently has been very poor. She felt fine this morning and was in the kitchen making breakfast when she felt her fingers and toes becoming numb. She does
not remember what happened after that. Her heard a thud from the other room and found her lying on the kitchen floor. She recovered to her baseline mental status quickly after regaining consciousness. She had no fecal or urinary
incontinence. Since falling she has been experiencing significant pain in her right hip and groin and has not been able to bear weight. Hip x-ray shows nondisplaced fractures of the right superior and inferior pubic rami with the superior ramus
fracture likely extending into the acetabulum. CT imaging her pelvis is pending. CT imaging of her head and neck show no acute abnormalities. She has been normotensive since arrival. Labs have been generally unremarkable except for a
leukocytosis of 17,000 and a hemoglobin of 10.1. She has been admitted for further evaluation and management.
Syncope:
- Suspect related to her stage III rectal cancer, chemo/radiation, and poor recent p.o. intake
- Does not select experience a seizure
- Does not sound like a primary cardiac event, troponin undetectable and EKG with no acute changes or arrhythmia
- Will continue telemetry monitoring
- Check echocardiogram
- Blood pressure acceptable, unable to check orthostatic vital signs at this point due to her being unable transitions in the setting of acute pelvic fractures, will continue to monitor blood pressure
- TSH, monitor electrolytes
- Holding home capecitabine, her primary oncologist (Dr. Gill) made aware
Pelvic fractures:
- X-ray shows nondisplaced fractures of the right superior and inferior pubic rami with superior ramus fracture likely extending into the acetabulum
- Ortho aware
- Pelvic CT pending
- Nonweightbearing for now
- Pain control
Leukocytosis:
- Suspect reactive in the setting of cancer, chemo/radiation, and syncopal episode with acute pelvic fracture
- Remains afebrile, no clinical signs of infection
- Will monitor for improvement leukocytosis
- If no improvement or worsening will check blood cultures
Hypertension:
- Chronic, stable
- Continue home HCTZ for now as blood pressure has been slightly high since admission
DVT prophylaxis: Subcu heparin
CODE STATUS: DNR, confirmed with patient and family at bedside
Total time spent on today's encounter was 58 minutes
--- NOTE | 2025-07-13 15:27 | CM ---
medical clinic manager reviewed patient's chart and met with patient and patient was admitted from home with possible pelvic fracture. Patient with port and is receiving chemo/radiation, Patient lives with spouse in a 2 story home, patient is independent
with adl's and uses a cane or walker with ambulation. Patient will need PT/OT evaluations to assist with discharge planning for patient.
PCP: Dr. Plunkett
Pharmacy: [facility] in [place].
[2025-07-13] MEDS: HEPARIN 5000 UNITS SC (16:49)
[2025-07-13] MEDS: TYLENOL 500 MG PO ×2 (16:49→21:01)
[2025-07-13] MEDS: PRED FORTE 1% EYE DROPS 1 DROP RIGHT EYE (21:03)
--- NOTE | 2025-07-13 21:13 | PTCARENOTE ---
Addendum entered by Shi Adair RN 07/13/25 21:24:
Pull up depends brought in by patient's son unable to be used due to significant pain -- unable to use provided briefs. Covidien pad under patient folded, will monitor.
Original Note:
Patient states she is having all new incontinence, states she has never had an issue with incontinence prior to coming to the hospital. Patient son at bedside, requesting diapers for patient -- ran out to get some to bring in and are requesting to
be used for now while having issues with incontinence. Patient and son both convinced that the SQ port being accessed is causing these issues -- currently there are no IVFs connected. Will discuss with COST CONSULTANT during rounding. Call leon in reach, will
continue to monitor.
[2025-07-14] MEDS: HEPARIN 5000 UNITS SC ×3 (00:15→16:11)
[2025-07-14] MEDS: TYLENOL 500 MG PO ×5 (00:15→20:59)
[2025-07-14 03:00] VITALS: BP 137/73
[2025-07-14] MEDS: TYLENOL PO (03:45)
--- NOTE | 2025-07-14 04:51 | PTCARENOTE ---
Addendum entered by Shi Adair RN 07/14/25 05:21:
Dunn catheter placed, patient tolerated well. Clear yellow urine. Initial output 850mls.
Original Note:
Patient requesting use of bedpan. Was just taken off of bedpan, small amount of urine and what appeared to be loose/liquid BM. Patient stating 'I had to go, but now suddenly I can't get it out.' Bladder appears distended, tender abdomen. Bladder
scanned for 580mls. Notified STEPHANIE Bernard -- will place Dunn catheter for retention. Up to see patient at bedside, encouraged patient to use pain control for pain relief. Will provide patient with PRN Morphine and PO Zofran - awaiting Zofran to
be delivered by pharmacy. Will place Dunn cath after med administration. Will monitor.
[2025-07-14] MEDS: MORPHINE SULFATE 1 MG IV (04:59)
[2025-07-14] MEDS: ZOFRAN ODT (ORALLY DISINTEGRATING) 8 MG PO (05:00)
[2025-07-14] MEDS: FLUSH (NSS) 2 FLUSH IV (05:00)
[2025-07-14 07:08] LABS: Hematocrit 32.5 % (37.0-47.0); Hemoglobin 10.5 g/dL (12.0-16.0); Mean Corp Hgb Conc. 32.3 g/dL (33.0-37.0); Mean Corpuscular Volume 82.9 fL (81.0-99.0); Nucleated Red Blood Cells % 0 %; Platelet Count 243 10^3/uL (130-400); Red Cell Dist. Width 14.6 % (11.5-14.5)
[2025-07-14 07:33] LABS: Blood Urea Nitrogen 10 mg/dl (7-17); Calcium 8.2 mg/dl (8.4-10.2); Carbon Dioxide 26 mmol/L (22-30); Chloride 110 mmol/L (98-107); Estimated Creatinine Clearance 56 ml/min; Glucose 103 mg/dl (70-99); Magnesium 2.2 mg/dl (1.6-2.3); Potassium 4.0 mmol/L (3.5-5.1); Sodium 139 mmol/L (135-145); eGFR > 60.00
[2025-07-14 07:46] VITALS: BP 146/76
[2025-07-14] MEDS: VITAMIN D3 (cholecalciferol) 25 MCG PO (09:37)
[2025-07-14] MEDS: PRED FORTE 1% EYE DROPS 1 DROP RIGHT EYE ×2 (09:38→20:59)
[2025-07-14] MEDS: ORETIC 25 MG PO (09:38)
--- NOTE | 2025-07-14 10:31 | CON.ORTHO ---
Consultation
-
Date/Time Consultation Performed: 07/14/2025 10 AM
Consultation - Orthopedics
History
85-year-old female history of recently diagnosed stage III rectal cancer with recent onset of radiation treatment this week presented to the emergency department after a fall with complaints of right hip pain. She was subsequently diagnosed with a
right superior and inferior pubic rami fracture. She was admitted to the hospital service. Orthopedics was consulted for further evaluation and treatment. Patient reports that she was at home when her fingers and toes went numb and she
subsequently fell. She does not recall the details of fall but does not think that she tripped over anything. After fall she was complaining of right groin pain. Pain is made worse with direct palpation affected area and with attempted
ambulation. She reports that she lives at home with her .
Allergies / Home Medications
Past medical history: Rectal cancer, hypertension, chronic anemia
Past surgical history: Port placement, none of the reported
Family history: Non-smoker, lives with
Social history: Not pertinent
Allergy/AdvReac Type Severity Reaction Status Date / Time
latex Allergy rash- Verified 07/13/25 12:31
hivelike
mold Allergy congestion Verified 07/13/25 12:31
plants outside Allergy prickly Uncoded 07/13/25 12:31
rash
tide Allergy Unknown Uncoded 07/13/25 12:31
�Medication �Instructions �Recorded
bromfenac 0.09 % eye drops 1 drp RIGHT EYE BID 06/03/25
cholecalciferol (vitamin D3) 25 25 mcg PO DAILY 06/03/25
mcg (1,000 unit) tablet
prednisolone acetate 1 % eye 1 drp RIGHT EYE BID 06/03/25
drops,suspension
therapeutic multivitamin 1 tab PO DAILY 06/03/25
capecitabine 150 mg tablet 300 mg PO BID 07/13/25
capecitabine 500 mg tablet 1,000 mg PO BID 07/13/25
hydrochlorothiazide 25 mg tablet 25 mg PO . DIRECTED 07/13/25
ondansetron 8 mg disintegrating 8 mg PO PRN PRN nausea 07/13/25
tablet
Vital Signs / Lab Results
Temp Pulse Resp BP Pulse Ox
98.0 F 65 16 146/76 96
07/14/25 07:46 07/14/25 07:46 07/14/25 07:46 07/14/25 07:46 07/14/25 07:46
07/14/25 06:41
07/14/25 06:41
10 point review systems reviewed and negative unless otherwise stated
General: Pleasant, no acute distress at rest in bed
Musculoskeletal right lower extremity
Skin intact, no erythema or ecchymotic staining
Tenderness palpation of groin and lateral trochanteric flare
No palpable ipsilateral knee effusion
Some reproducible groin pain with logroll and passive motion internal/external rotation of hip
Positive EHL, FHL, ankle dorsiflexion, plantarflexion
Brisk cap refill
No other areas of bony tenderness palpation or crepitation long bones or joints of surgery exam
Diagnostic studies
X-rays right hip as well as CT scan pelvis independently viewed by myself. Radiology report was reviewed. There is evidence of minimally displaced inferior right sided pubic rami fracture and right sided pubic root fracture. Radiologist report
notes slight extension to acetabulum.
Assessment / Plan
85-year-old female recent diagnosis of rectal cancer status post fall with right sided hemipelvis injury. Had a long discussion with the patient regarding diagnosis and treatment options. Explained her that this is something that would recommend
conservative treatment for her. Would recommend protected weightbearing with a walker when out of bed. Ambulation with physical therapy. Would recommend DVT prophylaxis of choice for 30 days particularly given her recent cancer diagnosis.
Outpatient follow-up in 4 weeks for repeat clinical assessment repeat radiographs.
Weightbearing as tolerated right lower extremity with walker
PT OT
Pain control
Medical management per primary team
DVT prophylaxis of choice
Outpatient follow-up in 4 weeks
No acute orthopedic intervention recommended
[2025-07-14 11:30] VITALS: BP 111/63
[2025-07-14 11:51] LABS: Glucose - Point of Care 156 mg/dl (70-99)
--- NOTE | 2025-07-14 14:40 | W.PN.HOSP.TC ---
Today's Communication/Plan
-
Assessment / Plan
Assessment / Plan
General: No Apparent Distress, Conversant
HEENT: NormoCephalic, Moist mucous membranes, Atraumatic
Respiratory: Clear and Non Labored Respirations
Cardiac: S1/S2 and Regular Rhythm; No Rub or Gallop
GI: Soft, Non Tender, Non Distended and Normal Bowel Sounds
Musculoskeletal: No Edema, significant right hip and groin TTP, right lower extremity range of motion limited by pain
Skin: Warm and dry
: NO Dunn
Neuro: Awake, Alert, Nonfocal/grossly intact
Psych: Calm and Intact Judgment/Insight
Ms. Cardoso is an 85-year-old female with a medical history of recently diagnosed stage III rectal cancer (right chest Chemo-Port in place, receiving chemo and radiation), hypertension, and chronic anemia who presented after a syncopal episode at
home. She started radiation treatment 4 days ago for her rectal cancer. Her p.o. intake recently has been very poor. She felt fine this morning and was in the kitchen making breakfast when she felt her fingers and toes becoming numb. She does
not remember what happened after that. Her heard a thud from the other room and found her lying on the kitchen floor. She recovered to her baseline mental status quickly after regaining consciousness. She had no fecal or urinary
incontinence. Since falling she has been experiencing significant pain in her right hip and groin and has not been able to bear weight. Hip x-ray shows nondisplaced fractures of the right superior and inferior pubic rami with the superior ramus
fracture likely extending into the acetabulum. CT imaging her pelvis is pending. CT imaging of her head and neck show no acute abnormalities. She has been normotensive since arrival. Labs have been generally unremarkable except for a
leukocytosis of 17,000 and a hemoglobin of 10.1. She has been admitted for further evaluation and management.
Syncope:
- Suspect related to her stage III rectal cancer, chemo/radiation, and poor recent p.o. intake
- Does not seem like she had a seizure, return to baseline mental status quickly after regaining consciousness, no convulsive activity witnessed
- Troponin was undetectable and EKG with no acute changes or arrhythmia, old however will check echocardiogram to evaluate for possible cardiac etiology
- Will continue telemetry monitoring
- Blood pressure acceptable, unable to check orthostatic vital signs at this point due to her being unable transitions in the setting of acute pelvic fractures, will continue to monitor blood pressure
- TSH and electrolytes within normal limits
- Holding home capecitabine, her primary oncologist (Dr. Gill) made aware
Pelvic fractures:
- X-ray shows nondisplaced fractures of the right superior and inferior pubic rami with superior ramus fracture likely extending into the acetabulum
- Ortho aware
- Pelvic CT confirms nondisplaced fractures
- Weightbearing as tolerated right lower extremity with walker
- PT/OT
- Pain control
Leukocytosis:
- Suspect reactive in the setting of cancer, chemo/radiation, and syncopal episode with acute pelvic fracture
- Remains afebrile, no clinical signs of infection
- Resolved without antibiotics
Hypertension:
- Chronic, stable
- Continue home HCTZ
DVT prophylaxis: Subcu heparin
CODE STATUS: DNR, confirmed with patient and family at bedside
Anticipated Discharge: 24 - 48 hours
Subjective/Interval History
-
Date of Service: July 14, 2025
Patient was seen and examined at bedside this morning. Feeling well other than right hip pain. Tolerating breakfast.
Objective Data
-
Labs:
Laboratory Results
07/14/25
06:41
WBC 8.0
Hgb 10.5 L
Hct 32.5 L
Plt Count 243
Sodium 139
Potassium 4.0
Chloride 110 H
Carbon Dioxide 26
BUN 10
Creatinine 0.5 L
Glucose 103 H
Calcium 8.2 L
Vital Signs:
Vital Signs
Temp Pulse Resp BP Pulse Ox
97.8 F 71 15 111/63 98
07/14/25 11:30 07/14/25 11:30 07/14/25 11:30 07/14/25 11:30 07/14/25 11:30
I&O
07/13/25 07/14/25 07/15/25
06:59 06:59 06:59
Output Total 850 / 850
Balance -850 / -850
Review of Systems
-
History Source: Patient
All other systems: Reviewed and negative
Musculoskeletal: Reports Joint Pain (Right hip pain)
Physical Exam
-
General: No Apparent Distress
[2025-07-14 15:14] VITALS: BP 134/78
[2025-07-14 19:00] VITALS: BP 111/62
[2025-07-14 23:00] VITALS: BP 117/66
[2025-07-15] VITALS (8 sets, daily range): BP systolic 91–151; BP diastolic 59–82; PULSE 72–75; O2SAT 98
[2025-07-15] MEDS: HEPARIN 5000 UNITS SC ×3 (00:11→15:16)
[2025-07-15] MEDS: TYLENOL 500 MG PO ×2 (00:13→08:59)
[2025-07-15] MEDS: TYLENOL PO (03:32)
[2025-07-15 05:38] LABS: Hematocrit 29.1 % (37.0-47.0); Hemoglobin 9.5 g/dL (12.0-16.0); Mean Corp Hgb Conc. 32.6 g/dL (33.0-37.0); Mean Corpuscular Volume 83.6 fL (81.0-99.0); Nucleated Red Blood Cells % 0 %; Platelet Count 219 10^3/uL (130-400); Red Cell Dist. Width 14.6 % (11.5-14.5)
[2025-07-15 06:19] LABS: Blood Urea Nitrogen 14 mg/dl (7-17); Calcium 8.0 mg/dl (8.4-10.2); Carbon Dioxide 28 mmol/L (22-30); Chloride 104 mmol/L (98-107); Estimated Creatinine Clearance 56 ml/min; Glucose 93 mg/dl (70-99); Magnesium 2.0 mg/dl (1.6-2.3); Potassium 4.0 mmol/L (3.5-5.1); Sodium 134 mmol/L (135-145); eGFR > 60.00
--- NOTE | 2025-07-15 08:16 | CON.CAR ---
Consultation
Consultation Request
Date/Time Consultation Requested: 07/15/2025 at 6:45 AM
Date/Time Consultation Performed: 07/15/2025 at 8:17 AM
Requesting Provider: Dr. Connolly
Performing Provider: Darwin Lima MD
Reason for Consultation: Syncope
Medical History
-
Chief Complaint: Syncope
History of Present Illness:
Pleasant 85-year-old woman with little past medical history, but over the last year lost 50 pounds in evaluation over the summer has led to the diagnosis of stage III rectal cancer. She has had a port placed and has been started on capecitabine.
She started radiation therapy last week. Ultimately the plan will be for curative resection. Yesterday, she was standing in the kitchen after making breakfast. She developed paresthesias of the hands and feet and her heard a thud. He
arrived to find her unconscious on the floor with rapid recovery of consciousness. She now has pelvic pain. She had a near syncopal episode while working outside earlier this summer, but was caught by her son. Currently she denies any chest pain,
shortness of breath, etc. Recent oncologic evaluation has led to the discovery of mitral annular calcification, coronary artery calcification on some aortic atherosclerosis on CT imaging. There is a background history of hypertension as well.
Past Medical History
Past Medical History: CAD (Subclinical, coronary artery calcification. CT shows mitral annular calcification), Cancer (Stage III rectal cancer diagnosed 2024 following 47 pounds of weight loss, now with syncope and pelvic fracture), HTN and Other
(Macular degeneration, compression fractures, cholelithiasis, atherosclerosis of abdominal aorta identified on abdominal CT)
Past Surgical History: None
Social History
Tobacco: Former Smoker
Alcohol: None
Drug: None
Personal:
Living: With Family
Employment: Retired
Family History
Family History: Reviewed & Not Pertinent
Allergies / Home Medications
Allergy/AdvReac Type Severity Reaction Status Date / Time
latex Allergy rash- Verified 07/13/25 12:31
hivelike
mold Allergy congestion Verified 07/13/25 12:31
plants outside Allergy prickly Uncoded 07/13/25 12:31
rash
tide Allergy Unknown Uncoded 07/13/25 12:31
�Medication �Instructions �Recorded �Confirmed �Type
bromfenac 0.09 % eye drops 1 drp RIGHT EYE BID Eye Condition 06/03/25 07/13/25 History
cholecalciferol (vitamin D3) 25 25 mcg PO DAILY Supplement 06/03/25 07/13/25 History
mcg (1,000 unit) tablet
prednisolone acetate 1 % eye 1 drp RIGHT EYE BID Eye Condition 06/03/25 07/13/25 History
drops,suspension
therapeutic multivitamin 1 tab PO DAILY Supplement 06/03/25 07/13/25 History
capecitabine 150 mg tablet 300 mg PO BID Cancer 07/13/25 07/13/25 History
capecitabine 500 mg tablet 1,000 mg PO BID Cancer 07/13/25 07/13/25 History
hydrochlorothiazide 25 mg tablet 25 mg PO . DIRECTED Blood 07/13/25 07/13/25 History
Pressure
ondansetron 8 mg disintegrating 8 mg PO PRN PRN nausea 07/13/25 07/13/25 History
tablet
Review of Systems
-
All other systems: Negative unless noted
Physical Exam
Vital Signs
Temp Pulse Resp BP Pulse Ox
36.4 C 63 16 131/67 95
07/15/25 07:14 07/15/25 07:14 07/15/25 07:14 07/15/25 07:14 07/15/25 07:14
Lab Results
07/15/25 05:19
07/15/25 05:19
Troponin I < 0.012 ng/ml 07/13/25 12:20
Physical Exam
General: No Apparent Distress
HEENT: Normocephalic
Respiratory: Clear
Cardiac: Murmur (Probable mitral valve prolapse with soft systolic murmur and click)
GI: Normal Bowel Sounds
Musculoskeletal: No Edema
Skin: Warm
Neuro: AO x 3
Psych: Calm
Impression / Plan
-
Impression:
Syncope, suspect vagal mechanism, volume depletion, orthostasis
Pelvic fracture
Stage III rectal cancer
Macular degeneration
Subclinical CAD by coronary artery calcification on CT imaging
Suspected mitral valve prolapse/MAC
Aortic atherosclerosis
Plan:
Her syncope sounds vagal in origin. We will check an echocardiogram. We can arrange for outpatient monitoring, though this may not be mandatory.
She has subclinical atherosclerosis. Given recent diagnosis of cancer, need for statin therapy is not urgent but is recommended. Aspirin could be considered.
Defer management of pelvic fracture to orthopedics and hospitalist.
We will await her echocardiogram.
Data Reviewed
-
EKG: Tracing Personally Visualized and interpreted (normal sinus rhythm, incomplete right bundle branch block)
Labs: Labs Reviewed by me (Hemoglobin 9.5, white count 8.7, platelets 219, BUN/creatinine are 14 and 0.6, troponin is undetectable, TSH is 0.93, )
[2025-07-15] MEDS: VITAMIN D3 (cholecalciferol) 25 MCG PO (08:59)
[2025-07-15] MEDS: ORETIC 25 MG PO (08:59)
[2025-07-15] MEDS: PRED FORTE 1% EYE DROPS 1 DROP RIGHT EYE ×2 (09:00→20:26)
--- NOTE | 2025-07-15 09:29 | W.PN.HOSP.TC ---
Today's Communication/Plan
-
Change Tylenol to 3 times daily
Encourage ambulation start discharge planning
Assessment / Plan
Assessment / Plan
General: No Apparent Distress, Conversant
HEENT: NormoCephalic, Moist mucous membranes, Atraumatic
Respiratory: Clear and Non Labored Respirations
Cardiac: S1/S2 and Regular Rhythm; No Rub or Gallop
GI: Soft, Non Tender, Non Distended and Normal Bowel Sounds
Musculoskeletal: No Edema, significant right hip and groin TTP, right lower extremity range of motion limited by pain
Skin: Warm and dry
: NO Dunn
Neuro: Awake, Alert, Nonfocal/grossly intact
Psych: Calm and Intact Judgment/Insight
Ms. Cardoso is an 85-year-old female with a medical history of recently diagnosed stage III rectal cancer (right chest Chemo-Port in place, receiving chemo and radiation), hypertension, and chronic anemia who presented after a syncopal episode at
home. She started radiation treatment 4 days ago for her rectal cancer. Her p.o. intake recently has been very poor. She felt fine this morning and was in the kitchen making breakfast when she felt her fingers and toes becoming numb. She does
not remember what happened after that. Her heard a thud from the other room and found her lying on the kitchen floor. She recovered to her baseline mental status quickly after regaining consciousness. She had no fecal or urinary
incontinence. Since falling she has been experiencing significant pain in her right hip and groin and has not been able to bear weight. Hip x-ray shows nondisplaced fractures of the right superior and inferior pubic rami with the superior ramus
fracture likely extending into the acetabulum. CT imaging her pelvis is pending. CT imaging of her head and neck show no acute abnormalities. She has been normotensive since arrival. Labs have been generally unremarkable except for a
leukocytosis of 17,000 and a hemoglobin of 10.1. She has been admitted for further evaluation and management.
Syncope:
- Suspect related to her stage III rectal cancer, chemo/radiation, and poor recent p.o. intake
- Does not seem like she had a seizure, return to baseline mental status quickly after regaining consciousness, no convulsive activity witnessed
- Troponin was undetectable and EKG with no acute changes or arrhythmia, old however will check echocardiogram to evaluate for possible cardiac etiology
- No arrhythmias on cardiac telemetry. Consulted cardiology. Syncopal episode likely vasovagal/dehydration related.
- Blood pressure acceptable, unable to check orthostatic vital signs at this point due to her being unable transitions in the setting of acute pelvic fractures, will continue to monitor blood pressure
- TSH and electrolytes within normal limits
- Holding home capecitabine, her primary oncologist (Dr. Gill) made aware
Pelvic fractures:
- X-ray shows nondisplaced fractures of the right superior and inferior pubic rami with superior ramus fracture likely extending into the acetabulum
- Ortho aware
- Pelvic CT confirms nondisplaced fractures
-Change Tylenol dosing to more suitable schedule as 3 times daily
- Weightbearing as tolerated right lower extremity with walker
- PT/OT
- Pain control
Hyponatremia, mild, no confusion
Leukocytosis:
- Suspect reactive in the setting of cancer, chemo/radiation, and syncopal episode with acute pelvic fracture
- Remains afebrile, no clinical signs of infection
- Resolved without antibiotics
Hypertension:
- Chronic, stable
- Continue home HCTZ
DVT prophylaxis: Subcu heparin
CODE STATUS: DNR, confirmed with patient and family at bedside
Total time spent to see the patient, examine the patient, review data and lab results, discuss treatment plan with patient, nursing staff around 55 minutes�
Anticipated Discharge: Within 24 hours
Subjective/Interval History
-
Date of Service: July 15, 2025
No chest pain
No sob
No headache
Right hip area/ pelvic pain upon moving
Objective Data
-
Labs:
Laboratory Results
07/15/25
05:19
WBC 8.7
Hgb 9.5 L
Hct 29.1 L
Plt Count 219
Sodium 134 L
Potassium 4.0
Chloride 104
Carbon Dioxide 28
BUN 14
Creatinine 0.6
Glucose 93
Calcium 8.0 L
Vital Signs:
Vital Signs
Temp Pulse Resp BP Pulse Ox
97.5 F 63 16 131/67 95
07/15/25 07:14 07/15/25 08:59 07/15/25 07:14 07/15/25 08:59 07/15/25 07:14
I&O
07/14/25 07/15/25 07/16/25
06:59 06:59 06:59
Intake Total 760 / 760
Output Total 850 / 850 850 / 850
Balance -850 / -850 -90 / -90
[2025-07-15] MEDS: ULTRAM 50 MG PO (10:14)
[2025-07-15] MEDS: TYLENOL 1000 MG PO ×2 (15:15→21:49)
[2025-07-16] MEDS: HEPARIN 5000 UNITS SC ×3 (00:07→16:17)
[2025-07-16 03:33] VITALS: BP 132/69
[2025-07-16 06:07] LABS: Hematocrit 29.3 % (37.0-47.0); Hemoglobin 9.6 g/dL (12.0-16.0); Mean Corp Hgb Conc. 32.8 g/dL (33.0-37.0); Mean Corpuscular Volume 83.0 fL (81.0-99.0); Nucleated Red Blood Cells % 0 %; Platelet Count 234 10^3/uL (130-400); Red Cell Dist. Width 14.6 % (11.5-14.5)
[2025-07-16 06:41] LABS: Blood Urea Nitrogen 24 mg/dl (7-17); Calcium 8.7 mg/dl (8.4-10.2); Carbon Dioxide 27 mmol/L (22-30); Chloride 102 mmol/L (98-107); Estimated Creatinine Clearance 48 ml/min; Glucose 100 mg/dl (70-99); Magnesium 2.0 mg/dl (1.6-2.3); Potassium 3.6 mmol/L (3.5-5.1); Sodium 133 mmol/L (135-145); eGFR > 60.00
[2025-07-16 07:29] VITALS: BP 127/99
--- NOTE | 2025-07-16 07:37 | W.PN.CARDCBS ---
Addendum entered and electronically signed by Zheng Flores DO 07/16/25 13:28:
I saw and examined the patient.
The Die Repairer Stamping's note was reviewed and I agree with the note.
Comment:
Plan:
Echo pending
HR and bp improved, suspect vasovagal syncope
Discussed conservative measures.
Outpt follow up with Dr Lima to consider outpt monitor.
If echo stable, will sign off.
Original Note:
Today's Communication / Plan
-
-await echo
-replete K
Impression / Plan
-
PCP:
Primary interface designer: initially seen by JSOUE Lima
Impression:
Syncope, suspect vagal mechanism, volume depletion, orthostasis
Pelvic fracture
Stage III rectal cancer
Macular degeneration
Subclinical CAD by coronary artery calcification on CT imaging
Suspected mitral valve prolapse/MAC
Aortic atherosclerosis
Plan:
Syncope
-thought to be vasovagal vs orthostatic in setting of hypovolemia
-telem personally reviewed: NSR 60-70s, 5 beat atrial run. No tachy or angela arrhythmias on telemetry since admission
-echo today
-t/c outpt holter monitor
-troponin undetectable
-BPs acceptable 102s-130s/ 60-90s. Not able to check orthostatic BPs due to pelvic fxn
-She has subclinical atherosclerosis (coronary artery calcification on CT scan). Given recent diagnosis of cancer, need for statin therapy is not urgent but is recommended. Aspirin could be considered.
-Defer management of pelvic fracture to orthopedics and hospitalist.
-cont HCTZ for HTN
-replete K- I ordered
Progress Note - Diversity Intern
Subjective
Date of Service: July 16, 2025
-denies dizziness, SOB
-c/o numbness in toes similar to what she experienced day of admission, which precipitated her fall
Objective
Labs:
07/16/25 05:54
07/16/25 05:54
Labs
Hgb 9.6 g/dL (12.0-16.0) L 07/16/25 05:54
Hct 29.3 % (37.0-47.0) L 07/16/25 05:54
Plt Count 234 10^3/uL (130-400) 07/16/25 05:54
PT 14.6 Sec (11.4-14.6) 07/13/25 10:56
INR 1.11 07/13/25 10:56
Sodium 133 mmol/L (135-145) L 07/16/25 05:54
Potassium 3.6 mmol/L (3.5-5.1) 07/16/25 05:54
BUN 24 mg/dl (7-17) H 07/16/25 05:54
Creatinine 0.7 mg/dL (0.6-1.0) 07/16/25 05:54
Glucose 100 mg/dl (70-99) H 07/16/25 05:54
Troponins
07/13/25
12:20
Troponin I < 0.012
Vital Signs and I&O:
Vital Signs
Temp Pulse Resp BP Pulse Ox
98.4 F 66 15 127/99 98
07/16/25 07:29 07/16/25 07:29 07/16/25 07:29 07/16/25 07:29 07/16/25 07:29
Vital Signs
Temp Pulse Resp BP Pulse Ox
98.4 F 66 15 127/99 98
07/16/25 07:07/16/25 07:29 07/16/25 07:29 07/16/25 07:29 07/16/25 07:29
Intake & Output
07/14/25 07/15/25 07/16/25 07/17/25
06:59 06:59 06:59 06:59
Intake Total 760 / 760 240 / 240
Output Total 850 / 850 850 / 850 1200 / 1200
Balance -850 / -850 -90 / -90 -960 / -960
Physical Exam
Physical Exam
GEN: No distress, awake, Ox3
HEENT: supple, anicteric, mmm
LUNGS: CTA, no wheezes/rales
CV: Reg, S1/S2, 1/6 syst LSB, no murmur
ABD: soft, BS+, NT/ND
EXT: No edema. 2+ L DP, 1+ R DP
NEURO: Gross non-focal
SKIN: No rash
[2025-07-16] MEDS: TYLENOL 1000 MG PO ×3 (08:55→21:07)
[2025-07-16] MEDS: ORETIC 25 MG PO (08:56)
[2025-07-16] MEDS: PRED FORTE 1% EYE DROPS 1 DROP RIGHT EYE ×2 (08:56→21:07)
[2025-07-16] MEDS: VITAMIN D3 (cholecalciferol) 25 MCG PO (08:58)
--- NOTE | 2025-07-16 09:14 | W.PN.HOSP.TC ---
Today's Communication/Plan
-
await echo to discharge
Assessment / Plan
Assessment / Plan
General: No Apparent Distress, Conversant
HEENT: NormoCephalic, Moist mucous membranes, Atraumatic
Respiratory: Clear and Non Labored Respirations
Cardiac: S1/S2 and Regular Rhythm; No Rub or Gallop
GI: Soft, Non Tender, Non Distended and Normal Bowel Sounds
Musculoskeletal: No Edema, significant right hip and groin TTP, right lower extremity range of motion limited by pain
Skin: Warm and dry
: NO Dunn
Neuro: Awake, Alert, Nonfocal/grossly intact
Psych: Calm and Intact Judgment/Insight
Ms. Cardoso is an 85-year-old female with a medical history of recently diagnosed stage III rectal cancer (right chest Chemo-Port in place, receiving chemo and radiation), hypertension, and chronic anemia who presented after a syncopal episode at
home. She started radiation treatment 4 days ago for her rectal cancer. Her p.o. intake recently has been very poor. She felt fine this morning and was in the kitchen making breakfast when she felt her fingers and toes becoming numb. She does
not remember what happened after that. Her heard a thud from the other room and found her lying on the kitchen floor. She recovered to her baseline mental status quickly after regaining consciousness. She had no fecal or urinary
incontinence. Since falling she has been experiencing significant pain in her right hip and groin and has not been able to bear weight. Hip x-ray shows nondisplaced fractures of the right superior and inferior pubic rami with the superior ramus
fracture likely extending into the acetabulum. CT imaging her pelvis is pending. CT imaging of her head and neck show no acute abnormalities. She has been normotensive since arrival. Labs have been generally unremarkable except for a
leukocytosis of 17,000 and a hemoglobin of 10.1. She has been admitted for further evaluation and management.
Syncope:
- Suspect related to her stage III rectal cancer, chemo/radiation, and poor recent p.o. intake
- Does not seem like she had a seizure, return to baseline mental status quickly after regaining consciousness, no convulsive activity witnessed
- Troponin was undetectable and EKG with no acute changes or arrhythmia, old however will check echocardiogram to evaluate for possible cardiac etiology
- No arrhythmias on cardiac telemetry. Consulted cardiology. Syncopal episode likely vasovagal/dehydration related.
- Blood pressure acceptable, unable to check orthostatic vital signs at this point due to her being unable transitions in the setting of acute pelvic fractures, will continue to monitor blood pressure
- TSH and electrolytes within normal limits
- Holding home capecitabine, her primary oncologist (Dr. Gill) made aware
Pelvic fractures:
- X-ray shows nondisplaced fractures of the right superior and inferior pubic rami with superior ramus fracture likely extending into the acetabulum
- Ortho aware
- Pelvic CT confirms nondisplaced fractures
-Change Tylenol dosing to more suitable schedule as 3 times daily
- Weightbearing as tolerated right lower extremity with walker
- PT/OT
- Pain control
Hyponatremia, mild, no confusion
Leukocytosis:
- Suspect reactive in the setting of cancer, chemo/radiation, and syncopal episode with acute pelvic fracture
- Remains afebrile, no clinical signs of infection
- Resolved without antibiotics
Hypertension:
- Chronic, stable
- Continue home HCTZ
DVT prophylaxis: Subcu heparin
CODE STATUS: DNR, confirmed with patient and family at bedside
Total time spent to see the patient, examine the patient, review data and lab results, discuss treatment plan with patient, nursing staff around 55 minutes�
Anticipated Discharge: Within 24 hours
Subjective/Interval History
-
Date of Service: July 16, 2025
NO chest pain
No sob
Objective Data
-
Labs:
Laboratory Results
07/16/25
05:54
WBC 7.2
Hgb 9.6 L
Hct 29.3 L
Plt Count 234
Sodium 133 L
Potassium 3.6
Chloride 102
Carbon Dioxide 27
BUN 24 H
Creatinine 0.7
Glucose 100 H
Calcium 8.7
Vital Signs:
Vital Signs
Temp Pulse Resp BP Pulse Ox
98.4 F 66 15 127/99 98
07/16/25 07:29 07/16/25 08:56 07/16/25 07:29 07/16/25 08:56 07/16/25 07:29
I&O
07/15/25 07/16/25 07/17/25
06:59 06:59 06:59
Intake Total 760 / 760 240 / 240
Output Total 850 / 850 1200 / 1200
Balance -90 / -90 -960 / -960
--- NOTE | 2025-07-16 10:24 | CM ---
Patient seen at bedside
PT/OT rec SNF
discussed options with patient and medicare.gov list given to patient
will discuss with her & get back to CM
PLAN: SNF, pending bed availability when stable
[2025-07-16 11:02] VITALS: BP 145/76
[2025-07-16] MEDS: KCL 20 MEQ PO (11:10)
[2025-07-16 12:18] VITALS: BP 128/68; PULSE 69
[2025-07-16 19:00] VITALS: BP 120/63
[2025-07-16 23:00] VITALS: BP 121/62
[2025-07-17] VITALS (7 sets, daily range): BP systolic 111–152; BP diastolic 64–75
[2025-07-17] MEDS: HEPARIN 5000 UNITS SC ×3 (01:36→15:35)
[2025-07-17] MEDS: TYLENOL 1000 MG PO ×3 (08:11→21:16)
[2025-07-17] MEDS: PRED FORTE 1% EYE DROPS 1 DROP RIGHT EYE ×2 (08:11→21:17)
[2025-07-17] MEDS: ORETIC 25 MG PO (08:12)
[2025-07-17] MEDS: VITAMIN D3 (cholecalciferol) 25 MCG PO (08:15)
--- NOTE | 2025-07-17 09:08 | PTCARENOTE ---
Chaudhary catheter removed at 0908 on 07/17/2025. 250mL clear yellow urine in chaudhary bag. Pt able to ambulate to commode and/or bathroom and ask for assistance when needed. Pt had no issues with removable. Pt instructed to ask for assistance for toileting
and educated that they need to urinate by 1508.
--- NOTE | 2025-07-17 10:16 | W.PN.HOSP.TC ---
Addendum entered and electronically signed by Marilyn Connolly MD 07/17/25 13:44:
Addendum
Plan to hold chemotherapy/radiotherapy while at rehab and resume upon discharge
End
Original Note:
Today's Communication/Plan
-
dc planning
Voiding trial
Assessment / Plan
Assessment / Plan
General: No Apparent Distress, Conversant
HEENT: NormoCephalic, Moist mucous membranes, Atraumatic
Respiratory: Clear and Non Labored Respirations
Cardiac: S1/S2 and Regular Rhythm; No Rub or Gallop
GI: Soft, Non Tender, Non Distended and Normal Bowel Sounds
Musculoskeletal: No Edema, significant right hip and groin TTP, right lower extremity range of motion limited by pain
Skin: Warm and dry
: NO Dunn
Neuro: Awake, Alert, Nonfocal/grossly intact
Psych: Calm and Intact Judgment/Insight
Ms. Cardoso is an 85-year-old female with a medical history of recently diagnosed stage III rectal cancer (right chest Chemo-Port in place, receiving chemo and radiation), hypertension, and chronic anemia who presented after a syncopal episode at
home. She started radiation treatment 4 days ago for her rectal cancer. Her p.o. intake recently has been very poor. She felt fine this morning and was in the kitchen making breakfast when she felt her fingers and toes becoming numb. She does
not remember what happened after that. Her heard a thud from the other room and found her lying on the kitchen floor. She recovered to her baseline mental status quickly after regaining consciousness. She had no fecal or urinary
incontinence. Since falling she has been experiencing significant pain in her right hip and groin and has not been able to bear weight. Hip x-ray shows nondisplaced fractures of the right superior and inferior pubic rami with the superior ramus
fracture likely extending into the acetabulum. CT imaging her pelvis is pending. CT imaging of her head and neck show no acute abnormalities. She has been normotensive since arrival. Labs have been generally unremarkable except for a
leukocytosis of 17,000 and a hemoglobin of 10.1. She has been admitted for further evaluation and management.
Syncope:
- Suspect related to her stage III rectal cancer, chemo/radiation, and poor recent p.o. intake
- Does not seem like she had a seizure, return to baseline mental status quickly after regaining consciousness, no convulsive activity witnessed
- Troponin was undetectable and EKG with no acute changes or arrhythmia, old however will check echocardiogram to evaluate for possible cardiac etiology
- No arrhythmias on cardiac telemetry. Consulted cardiology. Syncopal episode likely vasovagal/dehydration related.
- Blood pressure acceptable, unable to check orthostatic vital signs at this point due to her being unable transitions in the setting of acute pelvic fractures, will continue to monitor blood pressure
- TSH and electrolytes within normal limits
- Holding home capecitabine, her primary oncologist (Dr. Gill) made aware
Pelvic fractures:
- X-ray shows nondisplaced fractures of the right superior and inferior pubic rami with superior ramus fracture likely extending into the acetabulum
- Ortho aware
- Pelvic CT confirms nondisplaced fractures
-Change Tylenol dosing to more suitable schedule as 3 times daily
- Weightbearing as tolerated right lower extremity with walker
- PT/OT
- Pain control
Hyponatremia, mild, no confusion
Acute urinary retention
Voiding trial today
Leukocytosis:
- Suspect reactive in the setting of cancer, chemo/radiation, and syncopal episode with acute pelvic fracture
- Remains afebrile, no clinical signs of infection
- Resolved without antibiotics
Hypertension:
- Chronic, stable
- Continue home HCTZ
DVT prophylaxis: Subcu heparin
CODE STATUS: DNR, confirmed with patient and family at bedside
Total time spent to see the patient, examine the patient, review data and lab results, discuss treatment plan with patient, nursing staff around 45 minutes�
Anticipated Discharge: Today
Subjective/Interval History
-
Date of Service: July 17, 2025
No chest pain
No sob
No abd pain
Objective Data
-
Vital Signs:
Vital Signs
Temp Pulse Resp BP Pulse Ox
98.4 F 74 18 123/66 94
07/17/25 07:00 07/17/25 08:12 07/17/25 07:00 07/17/25 08:12 07/17/25 07:00
I&O
07/16/25 07/17/25 07/18/25
06:59 06:59 06:59
Intake Total 240 / 240 180 / 180 480 / 480
Output Total 1200 / 1200 700 / 700 1050 / 1050
Balance -960 / -960 -520 / -520 -570 / -570
--- NOTE | 2025-07-17 12:35 | CM ---
Addendum entered by Ai Reyez 07/17/25 15:14:
transportation forms on chart.
spoke with tito Irene
updated [facility]port - LM with Emmy verdugo
Original Note:
referrals entered in careport
PT rec SNF
discussed with patient/son Teto as chemo barrier to SNF
tt Dr. Gill/hospitalist if chemo can be on hold while at SNF
Spoke with Emmy liaison [facility] - requested documentation of chemo on hold while at rehab
Emmy states bed would be available tomorrow
Left message with tito Teto
IMM explained & signed. In chart
PLAN: [facility] 07/18/25
Report #: [phone]
Fax #: [phone]
[2025-07-18] MEDS: HEPARIN SC (01:10)
[2025-07-18 07:00] VITALS: BP 144/75
[2025-07-18] MEDS: TYLENOL 1000 MG PO (08:41)
[2025-07-18] MEDS: VITAMIN D3 (cholecalciferol) 25 MCG PO (08:43)
[2025-07-18] MEDS: ORETIC 25 MG PO (08:43)
[2025-07-18] MEDS: HEPARIN 5000 UNITS SC (08:44)
[2025-07-18] MEDS: PRED FORTE 1% EYE DROPS 1 DROP RIGHT EYE (08:47)
--- NOTE | 2025-07-18 09:35 | W.PN.HOSP.TC ---
Today's Communication/Plan
-
dc
Assessment / Plan
Assessment / Plan
General: No Apparent Distress, Conversant
HEENT: NormoCephalic, Moist mucous membranes, Atraumatic
Respiratory: Clear and Non Labored Respirations
Cardiac: S1/S2 and Regular Rhythm; No Rub or Gallop
GI: Soft, Non Tender, Non Distended and Normal Bowel Sounds
Musculoskeletal: No Edema, significant right hip and groin TTP, right lower extremity range of motion limited by pain
Skin: Warm and dry
: NO Dunn
Neuro: Awake, Alert, Nonfocal/grossly intact
Psych: Calm and Intact Judgment/Insight
Ms. Cardoso is an 85-year-old female with a medical history of recently diagnosed stage III rectal cancer (right chest Chemo-Port in place, receiving chemo and radiation), hypertension, and chronic anemia who presented after a syncopal episode at
home. She started radiation treatment 4 days ago for her rectal cancer. Her p.o. intake recently has been very poor. She felt fine this morning and was in the kitchen making breakfast when she felt her fingers and toes becoming numb. She does
not remember what happened after that. Her heard a thud from the other room and found her lying on the kitchen floor. She recovered to her baseline mental status quickly after regaining consciousness. She had no fecal or urinary
incontinence. Since falling she has been experiencing significant pain in her right hip and groin and has not been able to bear weight. Hip x-ray shows nondisplaced fractures of the right superior and inferior pubic rami with the superior ramus
fracture likely extending into the acetabulum. CT imaging her pelvis is pending. CT imaging of her head and neck show no acute abnormalities. She has been normotensive since arrival. Labs have been generally unremarkable except for a
leukocytosis of 17,000 and a hemoglobin of 10.1. She has been admitted for further evaluation and management.
Syncope:
- Suspect related to her stage III rectal cancer, chemo/radiation, and poor recent p.o. intake
- Does not seem like she had a seizure, return to baseline mental status quickly after regaining consciousness, no convulsive activity witnessed
- Troponin was undetectable and EKG with no acute changes or arrhythmia, old however will check echocardiogram to evaluate for possible cardiac etiology
- No arrhythmias on cardiac telemetry. Consulted cardiology. Syncopal episode likely vasovagal/dehydration related.
- Blood pressure acceptable, unable to check orthostatic vital signs at this point due to her being unable transitions in the setting of acute pelvic fractures, will continue to monitor blood pressure
- TSH and electrolytes within normal limits
- Holding home capecitabine, her primary oncologist (Dr. Gill) made aware
Pelvic fractures:
- X-ray shows nondisplaced fractures of the right superior and inferior pubic rami with superior ramus fracture likely extending into the acetabulum
- Ortho aware
- Pelvic CT confirms nondisplaced fractures
-Change Tylenol dosing to more suitable schedule as 3 times daily
- Weightbearing as tolerated right lower extremity with walker
- PT/OT
- Pain control
Hyponatremia, mild, no confusion
Acute urinary retention
Resolved, voiding well on her own.
Leukocytosis: Resolved
- Suspect reactive in the setting of cancer, chemo/radiation, and syncopal episode with acute pelvic fracture
- Remains afebrile, no clinical signs of infection
- Resolved without antibiotics
Hypertension:
- Chronic, stable
- Continue home HCTZ
DVT prophylaxis: Subcu heparin to continue in SNF
CODE STATUS: DNR, confirmed with patient and family at bedside
Total discharge time spent to see the patient, examine the patient, review data and lab results, discuss discharge plan with patient, nursing staff around 65 minutes�
Anticipated Discharge: Today
Subjective/Interval History
-
Date of Service: July 18, 2025
No chest pain
No sob
No fevers
Objective Data
-
Vital Signs:
Vital Signs
Temp Pulse Resp BP Pulse Ox
97.6 F 74 18 144/75 98
07/18/25 07:00 07/18/25 08:43 07/18/25 07:00 07/18/25 08:43 07/18/25 08:00
I&O
07/17/25 07/18/25 07/19/25
06:59 06:59 06:59
Intake Total 180 / 180 1340 / 1340
Output Total 700 / 700 1050 / 1050
Balance -520 / -520 290 / 290
--- NOTE | 2025-07-18 09:59 | CM ---
IMM signed yesterday in chart.
[facility] was updated for [facility]
spoke with son & patient agreeable
NOON transport - Emmy liaison notified
PLAN: [facility] 07/18/25
Report #: [phone]
Fax #: [phone]
transportation forms on chart, noon transport
[2025-07-18 12:13] VITALS: BP 140/70
--- NOTE | 2025-07-19 06:48 | W.DCSUMMARY ---
Discharge Summary
Discharge Data
Date of Admission: 07/13/25
Date of Discharge: 07/18/25
-
Pending Results: No
Hospital Course
85 years old female presented after a fall with complaints of right hip pain. Patient had imaging studies that showed right superior and inferior pubic rami fracture. Fracture was nondisplaced. Patient was evaluated by orthopedic doctor.
Recommendation was to continue weightbearing as tolerated and outpatient follow-up. Patient had history of syncopal episode. She was evaluated by enrollment eligibility representative. No acute cardiac issues. Syncope was felt to be related to vasovagal/dehydration
possibility. Oncologist recommended to hold therapy for now until recovery. Patient had acute urinary retention but resolved and was able to void without issues. She was noted to have significant discomfort was given Tylenol [id number] with
as needed tramadol. Patient remained hemodynamically stable. She was evaluated by physical therapy and case managers. Patient was discharged to [facility] in a stable condition.
Discharge Plan
-
Patient Disposition: Retirement/SNF
Discharge Diagnosis/Procedures: Pelvic fractures: nondisplaced fractures of the right superior and inferior pubic rami with superior ramus fracture likely extending into the acetabulum
Diet: As tolerated
Referrals:
Zee Gill DO [Active, Hematology / Oncology] - in three to four weeks
Ata Montes MD [Active, Orthopedics] - in three to four weeks
UNKNOWN - PT DOES,NOT KNOW [Family Provider]
Prescriptions:
New
tramadol 50 mg Tablet
50 mg PO Q6HPRN PRN (Reason: moderate pain) Qty: 10 0RF
acetaminophen [Tylenol Extra Strength] 500 mg Tablet
1,000 mg PO TID Qty: 20 0RF
heparin (porcine) 5,000 unit/mL Solution
5,000 unit SC BID Qty: 20 0RF
Continued
therapeutic multivitamin Tablet
1 tab PO DAILY
prednisolone acetate 1 % Drops,Suspension
1 drp RIGHT EYE BID
bromfenac 0.09 % Drops
1 drp RIGHT EYE BID
cholecalciferol (vitamin D3) 25 mcg (1,000 unit) Tablet
25 mcg PO DAILY
ondansetron 8 mg Tablet,Disintegrating
8 mg PO PRN PRN (Reason: nausea)
hydrochlorothiazide 25 mg Tablet
25 mg PO . DIRECTED
Discontinued
capecitabine 500 mg Tablet
1,000 mg PO BID
capecitabine 150 mg Tablet
300 mg PO BID
Discharge Orders:
Discharge Patient (As Directed); Ordered 07/17/25
Ordered By: Marilyn Connolly
Discharge Date and Time
Discharge Date/Time: 07/18/25 12:23
Print Language: URUGUAYAN
== END 2025-07-18 12:23 | DRG 536 ==
LOC: 3 WEST ACU 13:48
PROVIDERS: Emergency Medicine; Physician Assistant; ADMITTING PHYSICIAN Internal Medicine; ATTENDING PHYSICIAN Internal Medicine; CONSULT PHYSICIAN Orthopaedic Surgery; EMERGENCY PHYSICIAN Emergency Medicine; OTHER PHYSICIAN Internal Medicine Cardiovascular Disease
DX: S32.591A Other specified fracture of right pubis, initial encounter for closed fracture (principal); E87.1 Hypo-osmolality and hyponatremia; C20 Malignant neoplasm of rectum; W19.XXXA Unspecified fall, initial encounter; Z85.048 Personal history of other malignant neoplasm of rectum, rectosigmoid junction, and anus; D72.829 Elevated white blood cell count, unspecified; I10 Essential (primary) hypertension; Z87.891 Personal history of nicotine dependence; Z91.040 Latex allergy status; E86.0 Dehydration; D64.9 Anemia, unspecified; I25.10 Atherosclerotic heart disease of native coronary artery without angina pectoris; I70.0 Atherosclerosis of aorta; Z66 Do not resuscitate; Z95.828 Presence of other vascular implants and grafts
CPT/HCPCS: 70450; 72125; 72192; 73502; 80048; 80053; 82962; 83735; 84100; 84443; 84484; 85025; 85610; 86850; 86900; 86901; 93005; 93306; 96360; 97116; 97163; 97167; 97530; 97535; 99285

== ENCOUNTER → 2025-09-16 14:39 | Outpatient (REF) | payer MEDICARE, OTHER, SELFPAY ==
[2025-09-16 16:25] LABS: Hematocrit 29.9 % (37.0-47.0); Hemoglobin 9.7 g/dL (12.0-16.0); Mean Corp Hgb Conc. 32.4 g/dL (33.0-37.0); Mean Corpuscular Volume 90.6 fL (81.0-99.0); Nucleated Red Blood Cells % 0 %; Platelet Count 266 10^3/uL (130-400); Red Cell Dist. Width 21.4 % (11.5-14.5)
[2025-09-16 16:45] LABS: ALT (SGPT) 17 U/L (0-35); AST (SGOT) 23 U/L (14-36); Albumin 4.0 g/dl (3.5-5.0); Alkaline Phosphatase 90 U/L (38-126); Blood Urea Nitrogen 11 mg/dl (7-17); Calcium 9.0 mg/dl (8.4-10.2); Carbon Dioxide 28 mmol/L (22-30); Chloride 99 mmol/L (98-107); Glucose 90 mg/dl (70-99); Potassium 4.2 mmol/L (3.5-5.1); Sodium 131 mmol/L (135-145); Total Protein 6.6 g/dl (6.3-8.2); eGFR > 60.00
== END ==
LOC: REG 14:39
PROVIDERS: ATTENDING PHYSICIAN Internal Medicine Hematology & Oncology; FAMILY PHYSICIAN Family Medicine
DX: C20 Malignant neoplasm of rectum (principal)
CPT/HCPCS: 36415; 80053; 85025

== ENCOUNTER → 2025-09-25 14:57 | Outpatient (REF) | payer MEDICARE, OTHER, SELFPAY ==
[2025-09-25 20:32] LABS: Urine Squamous Cell 0-2 /LPF (Few)
[2025-09-25 20:33] LABS: Urine Red Blood Cell 0-2 /HPF (0-2)
== END ==
LOC: REG 14:57
PROVIDERS: ATTENDING PHYSICIAN Radiology Radiation Oncology
DX: C20 Malignant neoplasm of rectum (principal)
CPT/HCPCS: 81015

== ENCOUNTER → 2025-10-28 13:16 | Outpatient (REF) | payer MEDICARE, OTHER, SELFPAY ==
[2025-10-28 13:46] LABS: Hematocrit 31.9 % (37.0-47.0); Hemoglobin 10.3 g/dL (12.0-16.0); Mean Corp Hgb Conc. 32.3 g/dL (33.0-37.0); Mean Corpuscular Volume 94.1 fL (81.0-99.0); Nucleated Red Blood Cells % 0 %; Platelet Count 294 10^3/uL (130-400); Red Cell Dist. Width 18.3 % (11.5-14.5)
[2025-10-28 14:45] LABS: ALT (SGPT) 15 U/L (0-35); AST (SGOT) 22 U/L (14-36); Albumin 4.1 g/dl (3.5-5.0); Alkaline Phosphatase 111 U/L (38-126); Blood Urea Nitrogen 13 mg/dl (7-17); Calcium 8.9 mg/dl (8.4-10.2); Carbon Dioxide 28 mmol/L (22-30); Chloride 99 mmol/L (98-107); Glucose 91 mg/dl (70-99); Potassium 4.3 mmol/L (3.5-5.1); Sodium 136 mmol/L (135-145); Total Protein 6.8 g/dl (6.3-8.2); eGFR > 60.00
== END ==
LOC: REG 13:16
PROVIDERS: ATTENDING PHYSICIAN Internal Medicine Hematology & Oncology
DX: C20 Malignant neoplasm of rectum (principal)
CPT/HCPCS: 36415; 80053; 85025

== ENCOUNTER → 2025-11-04 14:12 | Outpatient (REF) | payer MEDICARE, OTHER, SELFPAY | LOC: RAD 14:12 | PROVIDERS: ATTENDING PHYSICIAN Internal Medicine Hematology & Oncology; FAMILY PHYSICIAN Family Medicine | DX: C20 Malignant neoplasm of rectum (principal) | CPT/HCPCS: 71260; 74177; Q9967 ==